=== PATIENT | female | born 1970 | race American Indian/Alaskan Native ===

== ENCOUNTER 2017-07-25 14:20 | Emergency (ER) | payer SELFPAY ==
[2017-07-25 15:11] LABS: Basophils % (Auto) 1.4 % (0.0-1.8); Eosinophils % (Auto) 9.6 % (0.0-4.3); Hematocrit 38.5 % (30.3-42.9); Mean Corpuscular HGB Conc 31 % (30-34); Mean Corpuscular Volume 79 fl (79-97); Platelet Count 361 K/mm3 (140-440); Red Blood Count 4.89 M/mm3 (3.65-5.03); Red Cell Distribution Width 15.3 % (13.2-15.2); White Blood Count 5.7 K/mm3 (4.5-11.0)
[2017-07-25 15:15] LABS: Mean Corpuscular Hemoglobin 25 pg (28-32)
[2017-07-25 15:31] LABS: Anion Gap 17 mmol/L; BUN/Creatinine Ratio 9; Blood Urea Nitrogen 7 mg/dL (7-17); Calcium 9.2 mg/dL (8.4-10.2); Carbon Dioxide 27 mmol/L (22-30); Chloride 101.5 mmol/L (98-107); Glucose 92 mg/dL (65-100); Potassium 4.3 mmol/L (3.6-5.0); Sodium 141 mmol/L (137-145)
[2017-07-25] MEDS ORDERED: SUBLIMAZE IV ONE (22:38)
[2017-07-25] MEDS ORDERED: TORADOL IV ONE (22:39)
--- NOTE | 2017-07-25 23:27 | Emergency Department Report ---
ED General Adult HPI - General Chief complaint: Chest Pain Stated complaint: CHEST PAIN Time Seen by Provider: 07/25/17 22:31 Source: patient Mode of arrival: Ambulatory Limitations: No Limitations - History of Present Illness Initial comments: She is a 47-year-old female past medical history of hypertension who presents with chest pain. Patient states chest pain is located in the middle of her chest it is an achy type of pain. It is an 8 out of 10 occurred earlier on today. Patient was resting when she had this chest pain. Patient denies having any shortness of breath she states the pain doesn't radiate and began heavily makes it worse resting makes it better. Patient also denies having any nausea or vomiting. Severity scale (0 -10): 5 - Related Data Previous Rx's Medication Instructions Recorded Last Taken Type Naproxen 250 mg PO BID #20 tablet 07/26/17 Unknown Rx Allergies Allergy/AdvReac Type Severity Reaction Status Date / Time codeine Allergy Rash Verified 07/25/17 14:26 ED Review of Systems ROS: Stated complaint: CHEST PAIN Other details as noted in HPI Constitutional: denies: chills, fever Eyes: denies: eye pain, eye discharge, vision change ENT: denies: ear pain, throat pain Respiratory: denies: cough, shortness of breath, wheezing Cardiovascular: chest pain Endocrine: no symptoms reported Gastrointestinal: denies: abdominal pain, nausea, diarrhea Genitourinary: denies: urgency, dysuria, discharge Musculoskeletal: denies: back pain, joint swelling, arthralgia Skin: denies: rash, lesions Neurological: denies: headache, weakness, paresthesias Psychiatric: denies: anxiety, depression Hematological/Lymphatic: denies: easy bleeding, easy bruising ED Past Medical Hx - Past Medical History Previous Medical History?: Yes Hx Hypertension: Yes Additional medical history: hyperlipidemia - Surgical History Past Surgical History?: Yes Additional Surgical History: x5. uterine ablation 2012. tonsillectomy 1980s. breast biospy 2015 - Social History Smoking Status: Never Smoker Substance Use Type: Alcohol - Medications Home Medications: Home Medications Medication Instructions Recorded Confirmed Last Taken Type Naproxen 250 mg PO BID #20 tablet 07/26/17 Unknown Rx ED Physical Exam - General Limitations: No Limitations General appearance: alert, in no apparent distress - Head Head exam: Present: atraumatic, normocephalic - Eye Eye exam: Present: normal appearance - ENT ENT exam: Present: mucous membranes moist - Neck Neck exam: Present: normal inspection - Respiratory Respiratory exam: Present: normal lung sounds bilaterally, chest wall tenderness. Absent: respiratory distress - Cardiovascular Cardiovascular Exam: Present: regular rate, normal rhythm. Absent: systolic murmur, diastolic murmur, rubs, gallop - GI/Abdominal GI/Abdominal exam: Present: soft, normal bowel sounds - Extremities Exam Extremities exam: Present: normal inspection - Back Exam Back exam: Present: normal inspection - Neurological Exam Neurological exam: Present: alert, oriented X3 - Psychiatric Psychiatric exam: Present: normal affect, normal mood - Skin Skin exam: Present: warm, dry, intact, normal color. Absent: rash ED Course Vital Signs 07/25/17 07/25/17 07/25/17 14:26 21:44 22:30 Temperature 97.9 F Pulse Rate 100 H 87 Respiratory 20 16 11 L Rate Blood Pressure 130/89 140/88 Blood Pressure 130/89 [Left] O2 Sat by Pulse 100 100 Oximetry 07/25/17 07/25/17 07/25/17 22:31 22:33 22:35 Temperature Pulse Rate 106 H 109 H 99 H Respiratory 11 L 12 9 L Rate Blood Pressure 140/88 140/88 140/88 Blood Pressure [Left] O2 Sat by Pulse 99 100 100 Oximetry 07/25/17 07/25/17 07/25/17 22:37 22:39 22:41 Temperature Pulse Rate 103 H 95 H 90 Respiratory 12 11 L 10 L Rate Blood Pressure 140/88 140/88 140/88 Blood Pressure [Left] O2 Sat by Pulse 100 100 100 Oximetry 07/25/17 07/25/17 07/25/17 22:43 22:45 22:47 Temperature Pulse Rate 88 86 83 Respiratory 12 8 L 9 L Rate Blood Pressure 140/88 140/88 140/88 Blood Pressure [Left] O2 Sat by Pulse 100 100 100 Oximetry 07/25/17 07/25/17 07/25/17 22:49 22:51 23:01 Temperature Pulse Rate 104 H 119 H Respiratory 26 H 24 Rate Blood Pressure 140/88 140/88 140/88 Blood Pressure [Left] O2 Sat by Pulse 100 99 99 Oximetry 07/25/17 07/25/17 07/25/17 23:02 23:03 23:05 Temperature Pulse Rate Respiratory Rate Blood Pressure 140/88 140/88 140/88 Blood Pressure [Left] O2 Sat by Pulse 100 100 100 Oximetry 07/25/17 07/25/17 07/25/17 23:07 23:09 23:11 Temperature Pulse Rate Respiratory Rate Blood Pressure 140/88 140/88 140/88 Blood Pressure [Left] O2 Sat by Pulse 100 100 100 Oximetry 07/25/17 07/25/17 07/25/17 23:13 23:15 23:17 Temperature Pulse Rate Respiratory Rate Blood Pressure 140/88 140/88 140/88 Blood Pressure [Left] O2 Sat by Pulse 100 100 100 Oximetry 07/25/17 07/25/17 07/25/17 23:19 23:21 23:23 Temperature Pulse Rate Respiratory Rate Blood Pressure 140/88 140/88 140/88 Blood Pressure [Left] O2 Sat by Pulse 100 100 98 Oximetry 07/25/17 07/25/17 07/25/17 23:25 23:27 23:29 Temperature Pulse Rate Respiratory Rate Blood Pressure 140/88 140/88 140/88 Blood Pressure [Left] O2 Sat by Pulse 100 99 100 Oximetry 07/25/17 07/25/17 07/25/17 23:30 23:31 23:33 Temperature Pulse Rate Respiratory Rate Blood Pressure 122/87 122/87 122/87 Blood Pressure [Left] O2 Sat by Pulse 100 99 100 Oximetry 07/25/17 07/25/17 07/25/17 23:35 23:37 23:39 Temperature Pulse Rate Respiratory Rate Blood Pressure 122/87 122/87 122/87 Blood Pressure [Left] O2 Sat by Pulse 100 100 100 Oximetry 07/25/17 07/25/17 07/25/17 23:41 23:43 23:45 Temperature Pulse Rate 89 86 86 Respiratory 25 H 12 14 Rate Blood Pressure 122/87 122/87 122/87 Blood Pressure [Left] O2 Sat by Pulse 100 97 100 Oximetry 07/25/17 07/25/17 07/25/17 23:47 23:49 23:51 Temperature Pulse Rate 83 86 94 H Respiratory 17 23 19 Rate Blood Pressure 122/87 122/87 122/87 Blood Pressure [Left] O2 Sat by Pulse 100 100 100 Oximetry 07/25/17 07/25/17 07/25/17 23:53 23:55 23:57 Temperature Pulse Rate 74 78 78 Respiratory 13 10 L 12 Rate Blood Pressure 122/87 122/87 122/87 Blood Pressure [Left] O2 Sat by Pulse 96 96 95 Oximetry 07/25/17 07/26/17 07/26/17 23:59 00:01 00:03 Temperature Pulse Rate 72 71 74 Respiratory 12 8 L 11 L Rate Blood Pressure 122/87 109/67 109/67 Blood Pressure [Left] O2 Sat by Pulse 99 97 96 Oximetry 07/26/17 07/26/17 07/26/17 00:05 00:07 00:09 Temperature Pulse Rate 91 H 76 75 Respiratory 14 9 L 11 L Rate Blood Pressure 109/67 109/67 109/67 Blood Pressure [Left] O2 Sat by Pulse 100 97 100 Oximetry 07/26/17 00:11 Temperature Pulse Rate 72 Respiratory 7 L Rate Blood Pressure 109/67 Blood Pressure [Left] O2 Sat by Pulse 98 Oximetry ED Medical Decision Making - Lab Data Result diagrams: 07/25/17 14:51 07/25/17 14:51 Lab Results 07/25/17 07/25/17 07/25/17 Range/Units 14:51 14:51 17:19 WBC 5.7 (4.5-11.0) K/mm3 RBC 4.89 (3.65-5.03) M/mm3 Hgb 12.0 (10.1-14.3) gm/dl Hct 38.5 (30.3-42.9) % MCV 79 (79-97) fl MCH 25 L (28-32) pg MCHC 31 (30-34) % RDW 15.3 H (13.2-15.2) % Plt Count 361 (140-440) K/mm3 Lymph % (Auto) 33.7 (13.4-35.0) % [place]alier % (Auto) 10.6 H (0.0-7.3) % Eos % (Auto) 9.6 H (0.0-4.3) % Baso % (Auto) 1.4 (0.0-1.8) % Lymph # 1.9 (1.2-5.4) K/mm3 [place]ier # 0.6 (0.0-0.8) K/mm3 Eos # 0.5 H (0.0-0.4) K/mm3 Baso # 0.1 (0.0-0.1) K/mm3 Seg Neutrophils % 44.7 (40.0-70.0) % Seg Neutrophils # 2.5 (1.8-7.7) K/mm3 Sodium 141 (137-145) mmol/L Potassium 4.3 (3.6-5.0) mmol/L Chloride 101.5 (98-107) mmol/L Carbon Dioxide 27 (22-30) mmol/L Anion Gap 17 mmol/L BUN 7 (7-17) mg/dL Creatinine 0.8 (0.7-1.2) mg/dL Estimated GFR > 60 ml/min BUN/Creatinine Ratio 9 % Glucose 92 (65-100) mg/dL Calcium 9.2 (8.4-10.2) mg/dL Troponin T < 0.010 < 0.010 (0.00-0.029) ng/mL 07/25/17 Range/Units 20:32 WBC (4.5-11.0) K/mm3 RBC (3.65-5.03) M/mm3 Hgb (10.1-14.3) gm/dl Hct (30.3-42.9) % MCV (79-97) fl MCH (28-32) pg MCHC (30-34) % RDW (13.2-15.2) % Plt Count (140-440) K/mm3 Lymph % (Auto) (13.4-35.0) % [place] % (Auto) (0.0-7.3) % Eos % (Auto) (0.0-4.3) % Baso % (Auto) (0.0-1.8) % Lymph # (1.2-5.4) K/mm3 [place]ier # (0.0-0.8) K/mm3 Eos # (0.0-0.4) K/mm3 Baso # (0.0-0.1) K/mm3 Seg Neutrophils % (40.0-70.0) % Seg Neutrophils # (1.8-7.7) K/mm3 Sodium (137-145) mmol/L Potassium (3.6-5.0) mmol/L Chloride (98-107) mmol/L Carbon Dioxide (22-30) mmol/L Anion Gap mmol/L BUN (7-17) mg/dL Creatinine (0.7-1.2) mg/dL Estimated GFR ml/min BUN/Creatinine Ratio % Glucose (65-100) mg/dL Calcium (8.4-10.2) mg/dL Troponin T < 0.010 (0.00-0.029) ng/mL - EKG Data -: EKG Interpreted by Me - EKG Data 07/26/17 00:39 EKG shows normal sinus rhythm no T-wave inversion no ST segment elevation or axis deviation - Radiology Data Radiology results: image reviewed This x-ray: Shows no acute cardiopulmonary disease - Medical Decision Making Chief medical diagnosis: Costochondritis Differential medical diagnosis: Non-STEMI, pneumothorax, pneumonia CBC, CMP, EKG, troponin, IV morphine, chest x-ray Patient's laboratory work is unremarkable chest x-ray is unremarkable. Patient has had 3 negative troponins. Patient's vital signs within normal limits she has no leg swelling no hemoptysis she PERC negative. A garza is feeling better after pain medication has been given I will send the patient home with the proximal end and I'll have patient follow up with her PCP. Discussed plan with patient and she agrees with plan. Additional verbal discharge instructions were given. Critical care attestation.: If time is entered above; I have spent that time in minutes in the direct care of this critically ill patient, excluding procedure time. ED Disposition Clinical Impression: Chest pain Qualifiers: Chest pain type: intercostal pain Qualified Code(s): R07.82 - Intercostal pain Disposition: DC-01 TO HOME OR SELFCARE Is pt being admited?: No Does the pt Need Aspirin: No Condition: Stable Instructions: Chest Pain (ED), Costochondritis (ED) Prescriptions: Naproxen 250 mg PO BID #20 tablet Referrals: ITEZL RASMUSSEN MD [Staff Physician] - 3-5 Days
[2017-07-26 01:23] VITALS: BP 117/78
--- NOTE | 2017-07-26 07:48 | XRay Report ---
ROUTINE CHEST, TWO VIEWS: HISTORY: chest pain. The trachea, heart, mediastinal contour, lung rooney and bony thorax are unremarkable. IMPRESSION: Unremarkable chest x-ray.
== END 2017-07-26 01:23 | disposition home or self-care (01) ==
LOC: ED 14:20
DX: R07.82 Intercostal pain (principal); I10 Essential (primary) hypertension; Z90.89 Acquired absence of other organs; Z88.5 Allergy status to narcotic agent
CPT/HCPCS: 36415; 71020; 80048; 84484; 85025; 93005; 93010; 96374; 96375; 99284; J1885; J3010

== ENCOUNTER 2019-03-03 14:58 | Outpatient (CLI) | payer OTHER | END 2019-03-03 14:59 | disposition home or self-care (01) | LOC: LABHHL 14:58 | PROVIDERS: ATTEND Surgery | DX: N63.13 Unspecified lump in the right breast, lower outer quadrant (principal); I10 Essential (primary) hypertension | CPT/HCPCS: 88112 ==

== ENCOUNTER 2019-05-23 08:29 | Outpatient (CLI) | payer OTHER | END 2019-05-23 08:30 | disposition home or self-care (01) | LOC: LABHHL 08:29 | PROVIDERS: ATTEND Surgery | DX: N63.24 Unspecified lump in the left breast, lower inner quadrant (principal) | CPT/HCPCS: 88305; 88341; 88342; 88368 ==

== ENCOUNTER 2019-06-10 10:14 | Outpatient (CLI) | payer OTHER ==
--- NOTE | 2019-06-11 14:13 | Magnetic Resonance Report ---
BILATERAL BREAST MR WITHOUT AND WITH GADOLINIUM INDICATION: Newly diagnosed left breast cancer. Status post left ultrasound-guided needle biopsy on 05/22/2019 of a left breast mass at 6:30 o'clock 7 cm from the nipple. Pathology: Invasive carcinoma N OS, Harrison grade 6/9, ER/GA positive, HER-2 equivocal Ki-67 50%. COMPARISONS: 05/22/2019 and 11/13/2018 mammograms TECHNIQUE: Axial 1.0 mm T1 without, axial high-resolution 2.0 mm T2 and axial 1.0 mm dynamic vibrant high-resolution postcontrast T1 fat saturation sequences on a 1.5 [place] magnet. The examination was p erformed with an 8-channel dedicated [place] breast coil. Post-processing with CAD and subtraction was performed on an [employer] workstation. 13.0 cc of MultiHance was injected without incident for the c ontrast portion of the exam. Consent was obtained prior to the administration of the contrast. FINDINGS: RIGHT BREAST: Mild background parenchymal enhancement. No mass or suspicious enhancement of the right breast. Too numerous to count benign cysts of the right breast. No suspicious right axillary or righ t internal mammary lymph nodes. LEFT BREAST: Moderate background parenchymal enhancement. The known cancer is an irregular enhancing mass at 6:00 7.8 cm from the nipple measuring 1.9 x 1.9 x 1.8 cm. It demonstrates heterogeneous enhan cement with mixed kinetics, 414% peak enhancement and 11% type III washout. Highly suspicious regiona l nonmass enhancement extends from the known cancer toward the nipple and measures approximately 6 x 6 x 7 cm. An oval suspicious mass at 8:30 o'clock 6 cm from the nipple measures 1.6 x 0.9 x 0.8 cm. I t demonstrates heterogeneous enhancement with mixed kinetics, 183% peak enhancement and 38% type III washout. Too numerous to count benign cysts of the left breast. The largest is at 9:00 and measures 2.4 cm. No suspicious left axillary or left internal mammary lymph nodes. IMPRESSION: 1. A 1.9 cm known left breast cancer at 6:00 7.8 cm from the nipple and highly suspicious regional no n-mass enhancement of the inferior left breast extending from the known cancer toward the nipple for at least 6-7 cm. 2. A second suspicious 1.6 cm left breast mass at 8:30 o'clock 6 cm from the nipple. 3. Negative right breast. 4. Too numerous to count bilateral benign breast cysts. FINAL ASSESSMENT: BI-RADS Category: 6 Known Cancer Signer Name: Luis Miguel Ramey MD Signed: 06/11/2019 2:09 PM Workstation Name: [id number]
--- NOTE | 2019-06-11 15:58 | Ultrasound Report ---
COMPLETE BILATERAL BREAST ULTRASOUND HISTORY: Newly diagnosed left breast cancer and history of bilateral cysts. COMPARISON: 02/03/2019 and 05/22/2019 mammograms FINDINGS: Complete sonographic evaluation of the right breast including imaging of the four quadrants and subar eolar areas reveals no solid mass or shadowing.Too numerous to count cysts. The largest is at 7:00 4 cm from the nipple and it measures 1.5 x 0.8 x 1.4 cm. A complex cyst at 9:00 6 cm from the nipple me asures 1.1 x 0.8 x 1.0 cm. It has retracted clot in the wall. Complete sonographic evaluation of the left breast including imaging of the four quadrants and subare olar areas reveals too numerous to count cysts. The largest is at 10:00 3 cm from the nipple measurin g 2.3 x 1.4 x 2.0 cm. An irregular solid hypoechoic mass at 6:00 7 cm from the nipple corresponds to the known cancer. It measures approximately 1.7 x 2.4 x 1.2 cm. A suspicious oval solid mass at 8:00 5 cm from the nipple measures 1.0 x 0.8 0.7 cm. IMPRESSION 1. Known left breast cancer at 6:00 7 cm from the nipple. 2. A second suspicious solid mass of the left breast at 8:00 5 cm from the nipple. This mass correlat es with a mass identified by MRI. 3. No solid mass of the right breast. 4. Too numerous to count bilateral benign breast cysts. If the clinical examination remains stable, the patient should continue an annual screening mammograp hic evaluation schedule. BIRADS 6: Known biopsy proven malignancy. Signer Name: Luis Miguel Ramey MD Signed: 06/11/2019 3:53 PM Workstation Name: [id number]
== END 2019-06-10 10:15 | disposition home or self-care (01) ==
LOC: SPVIMAG 10:14
PROVIDERS: ATTEND Surgery
DX: C50.312 Malignant neoplasm of lower-inner quadrant of left female breast (principal); I10 Essential (primary) hypertension
CPT/HCPCS: 76641; A9577; C8908; 77049

== ENCOUNTER 2019-07-30 05:49 | Observation (INO) | payer MEDICARE, OTHER ==
[~2019-07-30 05:49] MED LIST: BACITRACIN 50,000 UNIT VIAL IR ONE; GENTAMICIN 40 MG/ML VIAL 2 ML IV ONE; METHYLENE BLUE 50 MG/10 ML AMP IRRIGATION ONE; SODIUM CHLORIDE 0.9% 50 ML IVPB IV ONE; SODIUM CHLORIDE 0.9% IRR 1,500 ML BOTTLE IR ONE; WATER FOR IRRIG STERILE 1,500 ML BOTTLE IR ONE; ceFAZolin 1 GM VIAL IV ONE; ceFAZolin/Water 2 GM/20 ML 2 GM/20 ML SYRINGE IV NR
[2019-07-30] MEDS: LACTATED RINGERS 1,000 ML IV SCH ×2 (07:00→18:35)
[2019-07-30] MEDS ORDERED: cloNIDine/PF 1,000 MCG/10 ML VIAL EP ONE (07:22)
[2019-07-30] MEDS ORDERED: dexAMETHasone 4 MG/ML VIAL ONE (07:22)
[2019-07-30] MEDS ORDERED: LIDOCAINE (1%) 10 MG/1 ML VIAL 20 ML MDV ONE (07:22)
[2019-07-30] MEDS ORDERED: BUPIVACAINE-EPINEPHRINE/PF 0.25%-1:200,000 (30 ML) VIAL INFILTRATI ONE (07:22)
[2019-07-30] MEDS ORDERED: fentaNYL 100 MCG/2 ML INJ IV NR (07:23)
[2019-07-30] MEDS ORDERED: FAMOTIDINE 20 MG/2 ML INJ IV NR (07:24)
--- NOTE | 2019-07-30 07:26 | Anesthesia Day of Surgery ---
Anesthesia Day of Surgery - Day of Surgery Patient Examined: Yes Patient H&P Reviewed: Yes Patient is NPO: Yes Cardiac Clearance: Yes
--- NOTE | 2019-07-30 07:26 | Anesthesia Consultation ---
Anesthesia Consult and Med Hx Date of service: 07/30/19 - Airway Anesthetic Teeth Evaluation: Good, Chipped (bottom right premolar) ROM Head & Neck: Adequate Mental/Hyoid Distance: Adequate Mallampati Class: Class II Intubation Access Assessment: Probably Good - Pulmonary Exam CTA: Yes - Cardiac Exam Cardiac Exam: RRR - Pre-Operative Health Status ASA Pre-Surgery Classification: ASA3 Proposed Anesthetic Plan: General Nerve Block: PEC - Pulmonary Hx Smoking: No Hx Respiratory Symptoms: No - Cardiovascular System Hx Hypertension: Yes Hx Heart Attack/AMI: No - Central Nervous System CVA: No Hx Psychiatric Problems: Yes (depression) - Gastrointestinal Hx Gastroesophageal Reflux Disease: Yes (controlled with omeprazole) - Endocrine Hx Renal Disease: No Hx Liver Disease: No Hx Insulin Dependent Diabetes: No Hx Non-Insulin Dependent Diabetes: No Hx Thyroid Disease: No - Hematic Hx Anemia: Yes - Other Systems Hx Cancer: Yes (breast Ca) Hx Obesity: No - Additional Comments Anesthesia Medical History Comments: No hx anesthetic complications. Cardiology clearance on chart.
[2019-07-30] MEDS ORDERED: METHYLENE BLUE 50 MG/10 ML AMP ONE (07:31)
[2019-07-30] MEDS ORDERED: ceFAZolin 1 GM VIAL ONE ×2 (07:31→12:06)
[2019-07-30] MEDS ORDERED: GENTAMICIN 40 MG/ML VIAL 2 ML ONE (07:31)
[2019-07-30] MEDS ORDERED: BACITRACIN 50,000 UNIT VIAL ONE (07:32)
[2019-07-30] MEDS ORDERED: FAMOTIDINE 20 MG/2 ML INJ IV ONE (07:33)
[2019-07-30] MEDS ORDERED: CELECOXIB 200 MG CAP ONE (07:33)
[2019-07-30] MEDS ORDERED: SODIUM CHLORIDE 0.9% 50 ML ONE (07:33)
[2019-07-30] MEDS ORDERED: PROPOFOL 200 MG/20 ML VIAL IV ONE (07:36)
[2019-07-30] MEDS ORDERED: ROCURONIUM 50 MG/5 ML INJ IV ONE (07:36)
[2019-07-30] MEDS ORDERED: dexAMETHasone 20 MG/5 ML VIAL ONE (07:36)
[2019-07-30] MEDS ORDERED: KETAMINE/STERILE WATER 50 MG/ML SYRINGE ONE (07:36)
[2019-07-30] MEDS ORDERED: LIDOCAINE MPF (2%) 20 MG/1 ML VIAL 5 ML ONE (07:36)
[2019-07-30] MEDS ORDERED: ONDANSETRON 4 MG/2 ML INJ ONE (07:36)
[2019-07-30] MEDS ORDERED: fentaNYL 100 MCG/2 ML INJ ONE ×2 (07:36→13:50)
[2019-07-30] MEDS ORDERED: GABAPENTIN 300 MG CAP PO NR (08:00)
[2019-07-30] MEDS ORDERED: CELECOXIB 200 MG CAP PO NR (08:00)
[2019-07-30] MEDS ORDERED: MIDAZOLAM 2 MG/2 ML INJ IV NR (08:00)
[2019-07-30] MEDS ORDERED: WATER FOR IRRIG STERILE 1,500 ML BOTTLE IR ONE (10:26)
[2019-07-30] MEDS ORDERED: LACTATED RINGERS 1,000 ML ONE (12:01)
[2019-07-30] MEDS ORDERED: BACITRACIN 50,000 UNIT VIAL IR ONE (12:37)
[2019-07-30] MEDS ORDERED: SODIUM CHLORIDE 0.9% IRR 1,500 ML BOTTLE IR ONE (12:37)
[2019-07-30] MEDS ORDERED: SODIUM CHLORIDE 0.9% 50 ML IVPB IV ONE (12:37)
[2019-07-30] MEDS ORDERED: GENTAMICIN 40 MG/ML VIAL 2 ML IV ONE (12:37)
[2019-07-30] MEDS ORDERED: ceFAZolin 1 GM VIAL IV ONE (12:37)
[2019-07-30] MEDS ORDERED: METHYLENE BLUE 50 MG/10 ML AMP IRRIGATION ONE (12:43)
[2019-07-30] MEDS ORDERED: ACETAMINOPHEN 325 MG TAB PO PRN (13:19)
[2019-07-30] MEDS ORDERED: METOCLOPRAMIDE 10 MG TAB PO PRN (13:19)
[2019-07-30] MEDS ORDERED: HYDROmorphone 2 MG TAB PO PRN (13:19)
[2019-07-30] MEDS ORDERED: oxyCODONE /ACETAMINOPHEN 5-325MG TAB PO PRN (13:19)
[2019-07-30] MEDS ORDERED: ONDANSETRON 4 MG/2 ML INJ IV PRN (13:19)
[2019-07-30] MEDS ORDERED: diphenhydrAMINE 25 MG CAP PO PRN (13:19)
--- NOTE | 2019-07-30 13:22 | Operative Report ---
Operative Report Operative Report: Operative Report: Date of Service: July 30, 2019 Preoperative diagnosis: Left breast cancer of the lower inner quadrant Postoperative diagnosis: Same Procedure: Left total mastectomy with sentinel lymph node biopsy followed by ALND and right total mastectomy Surgeon: Jackelin Haney M.D. Ve Teacher: Megan Herbert M.D. Anesthesia: Gen. Findings: Left breast clip present within left total mastectomy. 3 sentinel lymph nodes identified and one sentinel lymph node positive for malignancy on frozen section of pathology and proceeded with left axillary lymph node dissection Complications: None Drains: Placed by plastic surgery Estimated blood loss: 50-100 cc Disposition: Plastic surgery placed bilateral tissue expanders Indications for operative procedure: This is a 49-year-old lady with newly diagnosed stage II left breast cancer of the lower inner quadrant, IDCA grade 2 [id number] ER/ID positive. Patient wanted to proceed with a bilateral mastectomy. Agreed with a left total mastectomy given probable multicentric left breast cancer. Patient understood undergoing a right total mastectomy does not decrease her chance for contralateral breast cancer to 0%. She wished to proceed with immediate placement of bilateral tissue adobe architect in conjunction with plastic surgery. She understood the role of possible adjuvant chemoradiation therapy pending final pathology. She wished to proceed with the above procedure. Procedure in detail: The patient was taken to the operating room and was placed supine. Gen. anesthesia was administered. The left nipple was injected with radioisotope. Bilateral chest and axillas were prepped and draped in the normal sterile operative fashion. Timeout was performed. Typical mastectomy incision markings were made. Known left breast cancer close intramammary fold around the 7:30 8 o'clock position. Skin was noted to be close to the tumor with MRI findings of 12-20 mm margin, decided not to resect skin anterior to cancer given skin would not appropriately approximate and close. If pathology is positive for skin margins patient will need to return to the operating room for a lattismus dorsi flap given small breast size in relationship to tumor size. Attention was taken towards the right breast. A skin incision was made with a 10 blade knife and dissection taken down to the subcutaneous tissues. First began raising of the superior flap to the level of the clavicle superiorly and posteriorly to the pectoralis muscle. Followed by raising of the medial flap to the level of the sternum and posteriorly to the pectoralis muscle. Followed by raising of the lateral flap to the level of the latissimus dorsi muscle and storm en down posteriorly. Followed by raising of the inferior flap to the level of the inframammary fold taken posterior to the pectoralis muscle. The mastectomy/breast was removed from the pectoralis muscle without incident. The specimen was appropriately marked and sent to pathology. Attention was taken towards the left breast. Ultrasound was used to identify the area of concern, known breast cancer mass palpable at the 7/8:00 position close to the IMF. A gamma probe was inserted into the axilla to identify the sentinel lymph node location with uptake noted. A skin incision was made with a 10 blade knife and dissection taken down to the subcutaneous tissues. First began raising of the superior flap to the level of the clavicle superiorly and posteriorly to the pectoralis muscle. Followed by raising of the medial flap to the level of the sternum and posteriorly to the pectoralis muscle. Followed by raising of the lateral flap to the level of the latissimus dorsi muscle and taken down pos teriorly. The gamma probe was inserted into the axilla, the axillary fascia was opened and 3 sentinel lymph nodes were identified with the gamma probe that was dissected free and sent to pathology. All remaining counts were less than 10% of the highest SLN. Lymph node was sent to pathology with findings positive for malignancy of first sentinel lymph node tested on frozen section, second SLN was negative and third remaining node was processed permanently given first node positive. Then proceeded with raising of the inferior flap to the level of the inframammary fold taken posterior to the pectoralis muscle. The mastectomy/breast was removed from the pectoralis muscle without incident. The specimen was appropriately marked and sent to radiology with findings of breast clip present and sent to pathology. Attention was then taken towards the left axilla. First began opening of the axillary fascia further. The lattismus dorsi muscle was identified and followed superiorly. Then proceeded with identification of the axillary vein followed by identification of the thoracodorsal bundle and long thoracic nerve. Axillary lymph nodes were then removed from the above boundaries with the aid of the bovie cautery in a sweeping-like motion and then sent to pathology. Axillary lymph nodes from level I and II were removed. Both nerves were identified and unharmed. Hemostasis was noted. The chest wall was irrigated and suctioned. Hemostasis was obtained. Plastic surgery then proceeded with placement of bilateral tissue expanders.
--- NOTE | 2019-07-30 13:41 | Post Operative Note ---
Pre-op diagnosis: left breast cancer Post-op diagnosis: same Findings: bilateral mastectomies Procedure: bilateral breast recon withe expanders and biologic mesh Anesthesia: GETA Surgeon: LUAN CBAELLO Estimated blood loss: none Pathology: none Condition: stable Disposition: PACU
[2019-07-30] MEDS ORDERED: traMADol 50 MG TAB PO PRN (13:50)
[2019-07-30] MEDS ORDERED: LACTATED RINGERS 1,000 ML IV SCH (14:00)
--- NOTE | 2019-07-30 14:02 | Post Operative Note ---
Pre-op diagnosis: Left Breast Cancer Post-op diagnosis: same Procedure: Right Breast Mastectomy, Left Breast Mastectomy, Left [place] Lymph Node Biopsy, with completion Axillary Lymph Node Dissection Anesthesia: MADHURI Surgeon: JEAN PIERRE THURSTON Diesel Truck Crane Operator: LUCILLE YOUNG Estimated blood loss: minimal Pathology: list Specimen disposition: to lab Condition: stable Disposition: other (Plastic Surgeon Dr. Feng took over and placed Bilateral Expanders)
[2019-07-30] MEDS: HYDROmorphone 1 MG/1 ML INJ IV PRN ×3 (14:11→14:56)
--- NOTE | 2019-07-30 14:12 | Operative Report ---
PREOPERATIVE DIAGNOSIS: Left breast cancer. POSTOPERATIVE DIAGNOSIS: Left breast cancer. PROCEDURES: 1. Bilateral breast reconstruction using tissue expanders. 2. Bilateral breast reconstruction using biological mesh. 3. Application of JESSY negative pressure wound VAC device to bilateral breasts for postoperative wound healing. SURGEON: Brant Feng MD QUALITY CLOTH TESTER: None. ANESTHESIA: General. OPERATIVE INDICATIONS: This is a 49-year-old female with a history of left-sided breast cancer, was referred to me by Dr. Jackelin Haney for breast reconstructive options. Due to the paucity of autologous tissue, reconstructive options were limited to implant based reconstruction. We decided an contract loader to implant-based reconstruction. Risks and benefits of surgery were discussed with the patient, she agreed. OPERATIVE DETAILS: With informed consent obtained, the patient was brought to the operating room and placed supine on the operating table. Dr. Haney began her portion of the operation, which will be dictated separately. I came into the operation after she had completed the right-sided mastectomy and was working on the left-sided mastectomy. I began on preparing the expanders on the back table. We used a [employer] ultra high profile 450 mL tissue expanders. We opened up 2 of those and the serial number on the right side was [id number], serial number for the left side was [id number] and we opened up 2 pieces of FlexHD pliable perforated large 13 x 22 cm biological mesh. On the right side, we used a piece with serial #[id number]; on the left side, serial #[id number]. We soaked the mesh in triple antibiotic irrigation. We removed all the air from the tissue contract loader filled with 50 mL of saline. We then went ahead and performed a wrap of the tissue contract loader using PDS sutures to completely wrap the anterior portion of the tissue contract loader. We then soaked in triple antibiotic and Betadine and Dr. Haney was done with the mastectomies. I assessed the defects as bilateral mastectomy defects. There was enough skin to close, but is going to be tight, so we only left 50 mL in this tissue contract loader. We started on the right side and secured the tissue contract loader and meshed to the chest wall using the suture tabs and 2-0 PDS sutures. We then placed a 19 and 15-Mosotho Giacomo drain and then went ahead and after irrigating and achieving hemostasis, began with closure. We closed with 2-0 Vicryl on the deeper layer, then a 3-0 Monocryl deep dermal and then a 3-0 Monocryl V-Loc barbed suture in a subcuticular fashion. On the left side, the same procedure was performed and we placed the 15-Mosotho round Giacomo drain down into the axillary defect from the axillary lymph node dissection that was performed. Otherwise, the contract loader was sewn in place. Hemostasis was achieved. We placed our drains and closed in the same fashion. We then went ahead and placed a JESSY negative pressure wound VAC device over each incision to help with postoperative wound healing. We placed the patient in a support binder, placed Biopatches over the drains and Tegaderm. She tolerated the procedure well, was awakened from general anesthesia and transferred to the PACU in stable condition. ESTIMATED BLOOD LOSS: Minimal. COMPLICATIONS: None. SPECIMENS: None. JOB# [id number] RODGER/VEL
[2019-07-30] MEDS ORDERED: HYDROmorphone 1 MG/1 ML INJ ONE (14:57)
--- NOTE | 2019-07-30 15:23 | Post Anesthesia Evaluation ---
- Post Anesthesia Evaluation Patient Participated: Yes Airway Patent: Yes Stable Respiratory Function: Yes Nausea/Vomiting: No Temp > 96.8F: Yes Pain Manageable: Yes Adequeate Hydration: Yes Anesthesia Complications: No
[2019-07-30] MEDS ORDERED: PETROLATUM,WHITE 30 GM OINT TP PRN (16:40)
[2019-07-30] MEDS: MORPHINE 2 MG/1 ML INJ IV PRN (18:38)
--- NOTE | 2019-07-30 19:22 | Short Stay Summary ---
Short Stay Documentation Date of service: 07/30/19 - History H&P: obtained from office - Allergies and Medications Current Medications: Allergies codeine Allergy (Verified 07/25/17 14:26) Rash amlodipine Adverse Reaction (Verified 07/28/19 16:18) Palpitation lisinopril Adverse Reaction (Verified 07/28/19 16:18) Facial Twitching NSAIDS (Non-Steroidal Anti-Inflamma Adverse Reaction (Verified 07/28/19 16:18) Contraindicated Severe GERD prednisone Adverse Reaction (Verified 07/28/19 16:18) Contraindicated Severe GERD Home Medications Medication Instructions Recorded Confirmed Last Taken Type Cholecalciferol (Vitamin D3) 2,000 unit PO QDAY 07/28/19 07/28/19 07/29/19 12:00 History [Vitamin D3 2,000 UNIT CAP] Cyanocobalamin (Vitamin B-12) 1,000 mcg PO 07/28/19 07/29/19 12:00 History [Vitamin B-12] Docusate Sodium [Colace] 100 mg PO BID 07/28/19 07/28/19 07/29/19 12:00 History Ferrous Sulfate [Feosol] 325 mg PO BID 07/28/19 07/28/19 07/29/19 12:00 History Loratadine [Claritin] 10 mg PO DAILY PRN 07/28/19 07/28/19 07/29/19 12:00 History Multivitamin [Children's Chewable 1 each PO DAILY 07/28/19 07/28/19 07/29/19 12:00 History Vitamin] Pantoprazole [Protonix] 40 mg PO BID 07/28/19 07/28/19 07/30/19 05:00 History RX: Telmisartan 40 mg PO DAILY 07/28/19 07/28/19 07/29/19 12:00 History Sulfamethoxazole/Trimethoprim 1 each PO BID 07/28/19 07/28/19 07/29/19 12:00 History [Bactrim DS TAB] Active Medications Acetaminophen (Tylenol) 650 mg PO Q6H PRN PRN Reason: Pain MILD(1-3)/Fever >100.5/MIRANDA Diphenhydramine HCl (Benadryl) 25 mg PO Q8H PRN PRN Reason: Itching Docusate Sodium (Colace) 100 mg PO BID NEGRO Hydromorphone HCl (Dilaudid) 0.5 mg IV Q10MIN PRN PRN Reason: Pain , Severe (7-10) Stop: 07/30/19 22:00 Last Admin: 07/30/19 14:56 Dose: 0.5 mg Documented by: Hydrophilic Ointment (Vaseline) 1 applic TP PRN PRN PRN Reason: Skin Irritation Last Admin: 07/30/19 16:53 Dose: 1 applic Documented by: Cefazolin Sodium (Ancef/Sterile Water 2 Gm/20 Ml) 2 gm in 20 mls @ 80 mls/hr IV PREOP NR; Protocol Stop: 07/30/19 23:59 Lactated Ringer's (Lactated Ringers) 1,000 mls @ 75 mls/hr IV DIRECT NEGRO Last Admin: 07/30/19 18:35 Dose: 75 mls/hr Documented by: Lactated Ringer's (Lactated Ringers) 1,000 mls @ 125 mls/hr IV DIRECT NEGRO Cefazolin Sodium (Ancef/Ns 1 Gm/50 Ml) 1 gm in 50 mls @ 100 mls/hr IV Q8HR NEGRO; Protocol Metoclopramide HCl (Reglan) 10 mg PO Q6H PRN PRN Reason: Nausea And Vomiting Midazolam HCl (Versed) 2 mg IV PREOP NR Stop: 07/30/19 23:59 Last Admin: 07/30/19 07:47 Dose: 2 mg Documented by: Morphine Sulfate (Morphine) 2 mg IV Q4H PRN PRN Reason: Pain, Moderate (4-6) Last Admin: 07/30/19 18:38 Dose: 2 mg Documented by: Ondansetron HCl (Zofran) 4 mg IV Q8H PRN PRN Reason: N/V unrelieved by Reglan Last Admin: 07/30/19 16:53 Dose: 4 mg Documented by: Sodium Chloride (Sodium Chloride Flush Syringe 10 Ml) 10 ml IV PRN PRN PRN Reason: LINE FLUSH Tramadol HCl (Ultram) 50 mg PO Q6H PRN PRN Reason: Pain, Moderate (4-6) - Brief post op/procedure progress note Date of procedure: 07/30/19 Pre-op diagnosis: Right breast cancer of upper outer quadrant Post-op diagnosis: same Procedure: Right MRM Anesthesia: GETA Findings: Right breast clip and positive SLN and proceeded with ALND Surgeon: JEAN PIERRE THURSTON Roadway Technician: LUCILLE YOUNG Estimated blood loss: other (125 ml) Pathology: list Specimen disposition: to lab Condition: stable - Disposition Condition at discharge: Good Disposition: DC/TX- [facility]RT-TRM GEN HOSP IP Short Stay Discharge Plan Activity: other (no heavy lifting) Diet: regular Wound: keep clean and dry Follow up with: PHYLICIA KAYE DO [Primary Care Provider] - 7 Days JEAN PIERRE THUSRTON MD [Staff Physician] - 7 Days
[2019-07-30] MEDS: ceFAZolin/NS 1 GM/50 ML 1 GM/50 ML BAG IV SCH (20:19)
[2019-07-30] MEDS ORDERED: DOCUSATE SODIUM 100 MG CAP PO SCH (22:00)
[2019-07-30] MEDS ORDERED: LOSARTAN 50 MG TAB PO SCH (22:00)
[2019-07-31] MEDS: MORPHINE 2 MG/1 ML INJ IV PRN (00:38)
[2019-07-31] MEDS: ceFAZolin/NS 1 GM/50 ML 1 GM/50 ML BAG IV SCH (03:24)
--- NOTE | 2019-07-31 08:23 | Progress Note ---
Assessment and Plan This is a 49 year olday POD# right tot mastectomy; left MRM and casper TE placement. 1. No acute events overnight. 2. Pain in good control. 3. Casper incisions healing well. 4. GARTH drain education. 5. OOB to hallway. Subjective Date of service: 07/31/19 Principal diagnosis: Stage II left breast cancer Interval history: POD#1 right total mastectomy, left MRM and casper tissue director educational radio placement Objective - Constitutional Vitals: Vital Signs - 12hr 07/30/19 07/30/19 07/31/19 20:41 22:10 00:27 Temperature 97.8 F 98.1 F Pulse Rate 67 67 71 Respiratory 20 20 Rate Blood Pressure 149/94 149/94 125/80 O2 Sat by Pulse 100 100 Oximetry 07/31/19 07/31/19 07/31/19 00:38 04:42 05:44 Temperature 98.2 F Pulse Rate 77 Respiratory 18 20 18 Rate Blood Pressure 113/78 O2 Sat by Pulse 100 Oximetry General appearance: Present: no acute distress - EENT Eyes: PERRL, EOM intact ENT: hearing intact, clear oral mucosa, dentition normal Ears: bilateral: normal - Neck Neck: supple, normal ROM - Respiratory Respiratory effort: normal - Breasts Breasts: other (casper inc c/d/i; no hematoma, skin well perfused; GARTH drains to bulb suction) - Cardiovascular Rhythm: regular Extremities: no ischemia, pulses intact, pulses symmetrical, No edema, normal temperature, normal color, Full ROM - Gastrointestinal General gastrointestinal: Present: soft, non-tender, non-distended Rectal Exam: deferred - Genitourinary Female genitourinary: deferred - Integumentary Integumentary: clear, warm, dry - Musculoskeletal Musculoskeletal: strength equal bilaterally - Neurologic Neurologic: CNII-XII intact, moves all extremities - Psychiatric Psychiatric: appropriate mood/affect, intact judgment & insight, memory intact, cooperative Medications & Allergies - Medications Allergies/Adverse Reactions: Allergies codeine Allergy (Verified 07/25/17 14:26) Rash amlodipine Adverse Reaction (Verified 07/28/19 16:18) Palpitation lisinopril Adverse Reaction (Verified 07/28/19 16:18) Facial Twitching NSAIDS (Non-Steroidal Anti-Inflamma Adverse Reaction (Verified 07/28/19 16:18) Contraindicated Severe GERD prednisone Adverse Reaction (Verified 07/28/19 16:18) Contraindicated Severe GERD Home Medications: Home Medications Medication Instructions Recorded Confirmed Last Taken Type Cholecalciferol (Vitamin D3) 2,000 unit PO QDAY 07/28/19 07/28/19 07/29/19 12:00 History [Vitamin D3 2,000 UNIT CAP] Cyanocobalamin (Vitamin B-12) 1,000 mcg PO 07/28/19 07/29/19 12:00 History [Vitamin B-12] Docusate Sodium [Colace] 100 mg PO BID 07/28/19 07/28/19 07/29/19 12:00 History Ferrous Sulfate [Feosol] 325 mg PO BID 07/28/19 07/28/19 07/29/19 12:00 History Loratadine [Claritin] 10 mg PO DAILY PRN 07/28/19 07/28/19 07/29/19 12:00 History Multivitamin [Children's Chewable 1 each PO DAILY 07/28/19 07/28/19 07/29/19 12:00 History Vitamin] Pantoprazole [Protonix] 40 mg PO BID 07/28/19 07/28/19 07/30/19 05:00 History Sulfamethoxazole/Trimethoprim 1 each PO BID 07/28/19 07/28/19 07/29/19 12:00 History [Bactrim DS TAB] Telmisartan 40 mg PO DAILY 07/28/19 07/28/19 07/29/19 12:00 History Active Medications: Generic Name Dose Route Start Last Admin Trade Name Freq PRN Reason Stop Dose Admin Acetaminophen 650 mg 07/30/19 13:19 Tylenol PO Q6H PRN Pain MILD(1-3)/Fever >100.5/MIRANDA Diphenhydramine HCl 25 mg 07/30/19 13:19 Benadryl PO Q8H PRN Itching Docusate Sodium 100 mg 07/30/19 22:00 07/30/19 22:10 Colace PO Not Given BID NEGRO Hydrophilic Ointment 1 applic 07/30/19 16:40 07/30/19 16:53 Vaseline TP 1 applic PRN PRN Administration Skin Irritation Lactated Ringer's 1,000 mls @ 125 mls/hr 07/30/19 14:00 Lactated Ringers IV DIRECT NEGRO Cefazolin Sodium 1 gm in 50 mls @ 100 mls/hr 07/30/19 15:00 07/31/19 03:24 Ancef/Ns 1 Gm/50 Ml IV 100 mls/hr Q8HR NEGRO Administration Protocol Losartan Potassium 50 mg 07/30/19 22:00 07/30/19 22:10 Cozaar PO 50 mg QDAY NEGRO Administration Metoclopramide HCl 10 mg 07/30/19 13:19 Reglan PO Q6H PRN Nausea And Vomiting Morphine Sulfate 2 mg 07/30/19 14:10 07/31/19 00:38 Morphine IV 2 mg Q4H PRN Administration Pain, Moderate (4-6) Ondansetron HCl 4 mg 07/30/19 13:19 07/30/19 16:53 Zofran IV 4 mg Q8H PRN Administration N/V unrelieved by Reglan Sodium Chloride 10 ml 07/30/19 13:19 Sodium Chloride Flush Syringe 10 Ml IV PRN PRN LINE FLUSH Tramadol HCl 50 mg 07/30/19 13:50 07/31/19 05:44 Ultram PO 50 mg Q6H PRN Administration Pain, Moderate (4-6)
[2019-07-31 11:54] VITALS: BP 118/77
--- NOTE | 2019-08-04 09:27 | Mammography Report ---
SPECIMEN RADIOGRAPH LEFT BREAST INDICATION: POST EXC BX. Left breast cancer. COMPARISON: 05/22/2019 mammogram FINDINGS: 2 biopsy clips are identified within the whole breast specimen. One clip is from the upper quadrant a nd the breast and the second clip is in the inferior portion of the breast near the inframammary fold . IMPRESSION: Excision of the known cancer. Signer Name: Luis Miguel Ramey MD Signed: 08/04/2019 9:22 AM Workstation Name: [id number]
== END 2019-07-31 11:17 | disposition short-term general hospital (02) ==
LOC: OR 05:49 → OB 14:11
PROVIDERS: ADMIT Surgery; ATTEND Surgery
DX: C50.312 Malignant neoplasm of lower-inner quadrant of left female breast (principal); I10 Essential (primary) hypertension; F41.9 Anxiety disorder, unspecified; K21.9 Gastro-esophageal reflux disease without esophagitis; Z98.891 History of uterine scar from previous surgery; Z98.51 Tubal ligation status
CPT/HCPCS: 19303; 19357; 38525; 38792; 76098; 78800; 81025; 88307; 88331; 96365; 96366; 96375; 96376; A9541; C1789; G0378; J0690; J0735; J1100; J1170; J1580; J2250; J2270; J2405; J2704; J3010; J7120; Q4128; Q9968; 88309; 88333; 88342; A6250

== ENCOUNTER 2019-09-03 12:33 | Day surgery (SDC) | payer OTHER, MEDICARE ==
[~2019-09-03 12:33] MED LIST changes: -BACITRACIN 50,000 UNIT VIAL IR ONE; -GENTAMICIN 40 MG/ML VIAL 2 ML IV ONE; -METHYLENE BLUE 50 MG/10 ML AMP IRRIGATION ONE; +METHYLENE BLUE 50 MG/10 ML AMP ONE; -SODIUM CHLORIDE 0.9% 50 ML IVPB IV ONE; -SODIUM CHLORIDE 0.9% IRR 1,500 ML BOTTLE IR ONE; +SODIUM CHLORIDE P/F VIAL 10 ML 0 ML ONE; -WATER FOR IRRIG STERILE 1,500 ML BOTTLE IR ONE; -ceFAZolin 1 GM VIAL IV ONE
[2019-09-03] MEDS ORDERED: BACITRACIN 50,000 UNIT VIAL ONE (14:22)
[2019-09-03] MEDS ORDERED: GENTAMICIN 40 MG/ML VIAL 2 ML ONE (14:22)
[2019-09-03] MEDS ORDERED: ceFAZolin 1 GM VIAL ONE (14:22)
[2019-09-03] MEDS ORDERED: SODIUM CHLORIDE 0.9% 1000 ML 1,000 ML ONE (14:23)
--- NOTE | 2019-09-03 15:25 | Anesthesia Day of Surgery ---
Anesthesia Day of Surgery - Day of Surgery Patient Examined: Yes Patient H&P Reviewed: Yes Patient is NPO: Yes
--- NOTE | 2019-09-03 15:25 | Anesthesia Consultation ---
Anesthesia Consult and Med Hx Date of service: 09/03/19 - Airway Anesthetic Teeth Evaluation: Good, Chipped (bottom right premolar) ROM Head & Neck: Adequate Mental/Hyoid Distance: Adequate Mallampati Class: Class II Intubation Access Assessment: Probably Good (previous easy intubation w/ MAC 3, 7.0 oETT) - Pulmonary Exam CTA: Yes - Cardiac Exam Cardiac Exam: RRR - Pre-Operative Health Status ASA Pre-Surgery Classification: ASA3 Proposed Anesthetic Plan: General - Pulmonary Hx Respiratory Symptoms: No - Cardiovascular System Hx Hypertension: Yes Hx Heart Attack/AMI: No - Central Nervous System CVA: No Hx Psychiatric Problems: Yes (depression) - Gastrointestinal Hx Gastroesophageal Reflux Disease: Yes (controlled with omeprazole) - Endocrine Hx Renal Disease: No Hx Liver Disease: No Hx Insulin Dependent Diabetes: No Hx Non-Insulin Dependent Diabetes: No Hx Thyroid Disease: No - Hematic Hx Anemia: Yes - Other Systems Hx Alcohol Use: Yes Hx Substance Use: No Hx Cancer: Yes (breast ca) Hx Obesity: No - Additional Comments Anesthesia Medical History Comments: No hx anesthetic complications.
[2019-09-03 15:39] LABS: Mean Corpuscular HGB Conc 32 % (30-34); Mean Corpuscular Volume 77 fl (79-97); Platelet Count 321 K/mm3 (140-440); Red Blood Count 4.01 M/mm3 (3.65-5.03); Red Cell Distribution Width 15.3 % (13.2-15.2)
[2019-09-03 15:46] LABS: Basophils # (Auto) 0.1 K/mm3 (0.0-0.1); Eosinophils # (Auto) 0.3 K/mm3 (0.0-0.4); Eosinophils % (Auto) 7.8 % (0.0-4.3); Monocytes # (Auto) 0.4 K/mm3 (0.0-0.8); Monocytes % (Auto) 11.5 % (0.0-7.3)
[2019-09-03] MEDS ORDERED: LACTATED RINGERS 1,000 ML IV SCH (16:00)
[2019-09-03] MEDS ORDERED: SCOPOLAMINE TRANSDERMAL PATCH 72 HR TD NR (16:00)
[2019-09-03] MEDS ORDERED: MIDAZOLAM 2 MG/2 ML INJ IV NR (16:00)
[2019-09-03] MEDS ORDERED: GABAPENTIN 300 MG CAP PO NR (16:00)
[2019-09-03] MEDS ORDERED: fentaNYL 100 MCG/2 ML INJ ONE (16:13)
[2019-09-03] MEDS ORDERED: LIDOCAINE MPF (2%) 20 MG/1 ML VIAL 5 ML ONE (16:13)
[2019-09-03] MEDS ORDERED: propofoL 200 MG/20 ML VIAL IV ONE (16:13)
[2019-09-03 17:02] LABS: Hypochromasia 1+; Total Cells Counted 100
[2019-09-03] MEDS ORDERED: WATER FOR IRRIG STERILE 1,000 ML BOTTLE IR ONE (17:08)
[2019-09-03] MEDS ORDERED: BACITRACIN 50,000 UNIT VIAL IR ONE (17:15)
[2019-09-03] MEDS ORDERED: GENTAMICIN 40 MG/ML VIAL 2 ML IV ONE (17:15)
[2019-09-03] MEDS ORDERED: SODIUM CHLORIDE 0.9% IRR 1,000 ML BOTTLE IR ONE (17:16)
[2019-09-03] MEDS ORDERED: ceFAZolin 1 GM VIAL IV ONE (17:16)
--- NOTE | 2019-09-03 17:45 | Operative Report ---
Operative Report Operative Report: Operative Report: Operative Report: September 03, 2019 Preoperative diagnosis: Left breast cancer of the lower inner quadrant with positive margin Postoperative diagnosis: Same Procedure: Left mastectomy inferior skin flap revision Surgeon: Jackelin Haney MD Gray Tender: Megan Herbert MD Anesthesia: General Findings: Excision of inferior skin flap at area of positive margin Complications: None EBL: Less than 50 ml Disposition: plastic surgery proceeded with closure Indications for operative procedure: This is a 49 year old lady with newly diagnosed multicentric left breast cancer of the lower inner quadrant, IDCA Stage II and recently underwent a prophylactic right total mastectomy and left modified radical mastectomy followed by immediate bilateral tissue expanders by plastic surgery, [id number] ER positive with positive lower inner quadrant margin. Recommendations were to proceed with mastectomy inferior skin flap revision with excision. Area of positive margin was marked at the time of surgery with 3-0 silk sutures given concern for positive margin given close proximity of tumor to skin and patient with small breast size and attempted to leave adequate skin for primary closure. Patient understood the possibility of having to go back to surgery for inferior mastectomy skin flap revision in conjuction with plastic surgery, she understood if skin could not be approximated she would need a rotational flap for closure given small breast size. She wished to proceed with the above procedure. Procedure in detail: Patient was then taken to the operating room. Gen. anesthesia was administered. Bilateral breast mounds/chest were prepped and draped in the normal sterile operative fashion. Timeout was performed. Skin incision using a 15 blade knife was made through the prior left mastectomy skin flap. The mesh that was placed with tissue expanders was dissected from the skin posteriorly without incident. 3 sutures that were placed laterally, in the middle and medially were identified and aided in the area of excision. A marking pen was used to shashank the area of excision, marking made outside the area of sutures placed from prior surgery. The inferior mastectomy skin flap revision with excision of inferior skin flap was taken down to the inframammary fold using a 15 blade knife and the inferior skin flap revision was then performed. Hemostasis was obtained with the Bovie cautery. Plastic surgery then proceeded with mobilization superiorly and inferiorly. The skin appeared wound be able to be closed primarily after saline was removed from the tissue film processing supervisor and film processing supervisor was deflated. Inferior mastectomy skin flap was then sent to pathology after properly marked. The patient tolerated surgery very well and plastic surgery then proceeded with skin closure. The patient underwent multiple tissue film processing supervisor expansions in preparation for surgery to aide in primary skin closure.
[2019-09-03] MEDS ORDERED: HYDROmorphone 1 MG/1 ML INJ ONE (18:35)
[2019-09-03] MEDS ORDERED: ROCURONIUM 50 MG/5 ML INJ IV ONE (18:35)
[2019-09-03] MEDS ORDERED: NEOSTIGMINE 10MG/10 ML INJ MDV ONE (18:35)
[2019-09-03] MEDS ORDERED: ONDANSETRON 4 MG/2 ML INJ ONE (18:35)
[2019-09-03] MEDS ORDERED: GLYCOPYRROLATE 0.4 MG/2 ML INJ ONE (18:35)
[2019-09-03] MEDS ORDERED: LACTATED RINGERS 1,000 ML ONE (18:47)
[2019-09-03] MEDS: HYDROmorphone 1 MG/1 ML INJ IV PRN ×2 (18:47→19:00)
[2019-09-03] MEDS ORDERED: ONDANSETRON 4 MG/2 ML INJ IV ONE (19:56)
[2019-09-03 20:43] VITALS: BP 158/93
--- NOTE | 2019-09-04 00:01 | Operative Report ---
PREOPERATIVE DIAGNOSIS: Left breast cancer with positive margin of the mastectomy skin flap. POSTOPERATIVE DIAGNOSIS: Left breast cancer with positive margin of the mastectomy skin flap. PROCEDURES: 1. Left breast reconstruction using other technique, local tissue rearrangement, 20 x 20 cm in size. 2. Application of JESSY negative pressure wound VAC device to left breast for postoperative wound healing. SURGEON: Brant Feng MD SECURITY THREAT ANALYST: None. ANESTHESIA: General. OPERATIVE INDICATIONS: This is a 49-year-old female with a history of left-sided breast cancer, underwent bilateral mastectomies with tissue business information consultant reconstruction. Unfortunately, postoperatively, final pathology demonstrated a positive margin on the inferior mastectomy flap on the left breast. Dr. Haney, her breast surgeon, required that she go back to surgery for additional excision of the skin on both poles. Attempts were made while getting her surgery scheduled to expand her in the office in a couple of weeks to see if we could get enough skin to potentially avoid a flap. We are trying to attempt to avoid a flap at this juncture given the fact that she is almost guaranteed to need radiation therapy and we would like to save the flap from radiation and use the flap post-radiation. Risks and benefits of surgery discussed with the patient and she agreed. OPERATIVE DETAILS: With informed consent obtained, the patient was brought to the operating room and placed supine on the operative table. Preoperative antibiotics and general anesthesia were administered. The patient was prepped and draped in the usual sterile fashion. Timeout was called to verify the name of the patient, operation being performed and the site of the operation. I began by incising the previous mastectomy incision. We dissected down until we encountered the FlexHD biological mesh. I then bluntly dissected a plane between the mastectomy skin flap and the biologic mesh circumferentially to dissect and expose the entire mesh implant composite. Once that was done, Dr. Haney identified the location of the area that was marked for concern for positive margin. We then marked the additional excision that had to be done. We performed the excision which resulted in a substantial defect going down to about 1-2 cm above the inframammary fold. At this point, in order to try to get the defect closed, extensive undermining was done circumferentially all the way down on to the abdominal wall in order to rotate and advance the abdominal wall flap. We also had to undermine medially and then superiorly up to the collar bone. Total area was roughly 20 x 20 square cm of undermining and mobilization. I was then able to advance the abdominal soft tissue flap up onto the chest wall and we used progressive tension sutures to do that and pull it up on to the lower pole of the implant. We then copiously irrigated with triple antibiotic and Betadine and then we placed a 19-Armenian round Giacomo drain, achieved hemostasis, and then brought the superior mastectomy flap down and closed with 2-0 Vicryl, 3-0 Monocryl, deep dermal and then 3-0 Monocryl running subcuticular barbed suture. We were able to do this with minimal tension on the closure due to progressive tension sutures with significant undermining and advancement of the superior abdominal flap. The business information consultant prior to this had been completely deflated and all the fluid was removed in order to take as much pressure off the tissues as possible. We then placed a JESSY negative pressure wound VAC device over the incision to help with postoperative wound healing and minimize the chance of dehiscence The drain was dressed with a Biopatch and Tegaderm. She tolerated the procedure well, was awakened from general anesthesia and transferred to PACU in stable condition. ESTIMATED BLOOD LOSS: Less than 50 mL. COMPLICATIONS: None. SPECIMENS: Per Dr. Haney. JOB# [id number] RODGER/VEL MARTINI
== END 2019-09-03 20:20 | disposition home or self-care (01) ==
LOC: OR 12:33
PROVIDERS: ATTEND Surgery
DX: C50.212 Malignant neoplasm of upper-inner quadrant of left female breast (principal); C50.812 Malignant neoplasm of overlapping sites of left female breast; G43.909 Migraine, unspecified, not intractable, without status migrainosus; I10 Essential (primary) hypertension; K21.9 Gastro-esophageal reflux disease without esophagitis; M79.7 Fibromyalgia; M19.90 Unspecified osteoarthritis, unspecified site; F41.9 Anxiety disorder, unspecified; Z72.89 Other problems related to lifestyle; Z98.890 Other specified postprocedural states; Z79.899 Other long term (current) drug therapy; Z88.5 Allergy status to narcotic agent; Z90.13 Acquired absence of bilateral breasts and nipples; Z98.51 Tubal ligation status; Z98.891 History of uterine scar from previous surgery; Z87.440 Personal history of urinary (tract) infections; Z80.8 Family history of malignant neoplasm of other organs or systems; Z86.2 Personal history of diseases of the blood and blood-forming organs and certain disorders involving the immune mechanism; Z88.8 Allergy status to other drugs, medicaments and biological substances
CPT/HCPCS: 19380; 36415; 81025; 85007; 85025; 88307; J0690; J1170; J1580; J2250; J2405; J2704; J2710; J3010; J7030; J7120; 88305; Q9968

== ENCOUNTER 2019-09-12 06:03 | Day surgery (SDC) | payer MEDICARE, OTHER ==
[~2019-09-12 06:03] MED LIST changes: -METHYLENE BLUE 50 MG/10 ML AMP ONE; -SODIUM CHLORIDE P/F VIAL 10 ML 0 ML ONE
[2019-09-12] MEDS ORDERED: BACITRACIN 50,000 UNIT VIAL ONE (06:35)
[2019-09-12] MEDS ORDERED: GENTAMICIN 40 MG/ML VIAL 2 ML ONE (06:35)
[2019-09-12] MEDS ORDERED: ceFAZolin 1 GM VIAL ONE (06:36)
[2019-09-12] MEDS ORDERED: SODIUM CHLORIDE P/F VIAL 10 ML 0 ML ONE (06:36)
[2019-09-12] MEDS ORDERED: BUPIVACAINE/PF (0.25%) 2.5 MG/ML 30 ML VIAL INFILTRATI ONE ×2 (06:37→08:27)
[2019-09-12] MEDS ORDERED: LACTATED RINGERS 1,000 ML ONE ×2 (06:37→09:16)
[2019-09-12] MEDS ORDERED: HEPARIN 10,000 UNITS/10 ML VIAL ONE (06:37)
[2019-09-12] MEDS ORDERED: SODIUM CHLORIDE 0.9% 100 ML ONE (06:37)
[2019-09-12] MEDS ORDERED: BACTERIOSTATIC SODIUM CHLORIDE 0.9% 30 ML VIAL INFILTRATI ONE (06:37)
[2019-09-12] MEDS ORDERED: LIDOCAINE (1%) 10 MG/1 ML VIAL 20 ML MDV ONE (06:38)
[2019-09-12] MEDS ORDERED: SODIUM CHLORIDE P/F VIAL 10 ML 10 ML ONE (06:38)
--- NOTE | 2019-09-12 07:21 | Anesthesia Day of Surgery ---
Anesthesia Day of Surgery - Day of Surgery Patient Examined: Yes Patient H&P Reviewed: Yes Patient is NPO: Yes
--- NOTE | 2019-09-12 07:22 | Anesthesia Consultation ---
Anesthesia Consult and Med Hx Date of service: 09/12/19 - Airway Anesthetic Teeth Evaluation: Chipped ROM Head & Neck: Adequate Mental/Hyoid Distance: Adequate Mallampati Class: Class II Intubation Access Assessment: Probably Good - Pre-Operative Health Status ASA Pre-Surgery Classification: ASA2 Proposed Anesthetic Plan: General - Pulmonary Hx Smoking: No Hx Asthma: No Hx Respiratory Symptoms: No COPD: No Hx Pneumonia: No - Cardiovascular System Hx Hypertension: Yes (2012- JAEL) Hx Heart Attack/AMI: No - Central Nervous System CVA: No Hx Psychiatric Problems: Yes (Anxiety) - Gastrointestinal Hx Gastroesophageal Reflux Disease: Yes (controlled with omeprazole) - Endocrine Hx Renal Disease: No Hx End Stage Renal Disease: No Hx Liver Disease: No Hx Insulin Dependent Diabetes: No Hx Non-Insulin Dependent Diabetes: No Hx Thyroid Disease: No - Hematic Hx Anemia: Yes - Other Systems Hx Alcohol Use: Yes Hx Substance Use: No Hx Cancer: Yes
[2019-09-12] MEDS ORDERED: ONDANSETRON 4 MG/2 ML INJ IV PRN (07:23)
[2019-09-12] MEDS ORDERED: ACETAMINOPHEN 500 MG TAB PO NR (07:24)
[2019-09-12] MEDS ORDERED: ROCURONIUM 50 MG/5 ML INJ IV ONE (07:32)
[2019-09-12] MEDS ORDERED: LIDOCAINE MPF (2%) 20 MG/1 ML VIAL 5 ML ONE (07:32)
[2019-09-12] MEDS ORDERED: PROPOFOL 200 MG/20 ML VIAL IV ONE (07:33)
[2019-09-12] MEDS ORDERED: fentaNYL 250 MCG/5 ML INJ ONE (07:33)
[2019-09-12] MEDS ORDERED: KETOROLAC 30 MG/1 ML INJ ONE (08:00)
[2019-09-12] MEDS ORDERED: MIDAZOLAM 2 MG/2 ML INJ IV NR (08:00)
[2019-09-12] MEDS ORDERED: LACTATED RINGERS 1,000 ML IV SCH (08:00)
[2019-09-12] MEDS ORDERED: ONDANSETRON 4 MG/2 ML INJ ONE (08:23)
[2019-09-12] MEDS ORDERED: dexAMETHasone 20 MG/5 ML VIAL ONE (08:23)
[2019-09-12] MEDS ORDERED: METOCLOPRAMIDE 10 MG/2 ML INJ ONE (08:23)
[2019-09-12] MEDS ORDERED: LIDOCAINE (1%) 10 MG/1 ML VIAL 20 ML MDV INFILTRATI ONE (08:27)
[2019-09-12] MEDS ORDERED: HEPARIN 10,000 UNITS/10 ML VIAL IV ONE ×2 (08:27→08:53)
[2019-09-12] MEDS ORDERED: KETAMINE/STERILE WATER 50 MG/ML SYRINGE ONE (08:33)
--- NOTE | 2019-09-12 08:38 | Operative Report ---
Operative Report Operative Report: Operative Report: September 12, 2019 Preoperative diagnosis: Left breast cancer of the lower inner quadrant with positive inferior flap margin Postoperative diagnosis: Same Procedure: Left mastectomy inferior skin flap revision Surgeon: Jackelin Haney MD Anesthesia: General Findings: Excision of inferior skin flap at area of positive margin with 3 cm margins, excision of skin to upper abdomen Complications: None EBL: Minimal Disposition: plastic surgery proceeded with closure Indications for operative procedure: This is a 49 year old lady with newly diagnosed multicentric left breast cancer of the lower inner quadrant, IDCA Stage II [id number] ER positive and recently underwent a prophylactic right total mastectomy and left modified radical mastectomy followed by immediate bilateral tissue expanders by plastic surgery, with positive lower inner quadrant margin. Recommendations were to proceed with mastectomy inferior skin flap revision with excision, initial pathology of left breast with too numerous to count left breast cancer masses-not seen on any imaging prior to surgery. Area of positive margin was marked at the time of surgery with 3-0 silk sutures given concern for positive margin given close proximity of tumor to skin and patient with small breast size and attempted to leave adequate skin for primary closure. She was taken to surgery on 09/03/2019 for mastectomy inferior flap revision with a small focus of adenomcarcinoma on final pathology, excision was taken to the inframammary fold. Recommendations are now to proceed with excision of the inferior flap with 3 cm margins which is way beyond the inframammary fold extending now into the upper abdomen. Port placement recommended same time of surgery given high risk on Mammoprint for breast cancer recurrence by medical oncology and patient will need adjuvant chemotherapy. Plastic surgery will then proceed with probable latissmus dorsi flap if unable to primary close after removal of tissue cyber legal advisor. She wished to proceed with the above procedure. Procedure in detail: Patient was then taken to the operating room. Gen. anesthesia was administered. Bilateral breast mounds/chest were prepped and draped in the normal sterile operative fashion. Timeout was performed. Dr. Lazcano placed right port. A skin incision using a 15 blade knife was made through the prior left mastectomy skin flap. The mesh that was placed with tissue expanders was dissected from the skin posteriorly without incident. Tissue cyber legal advisor was present and left intact. A marking pen was used to shashank the area of excision with 3 cm from the inferior mastectomy flap, giving 3 cm margins. The inferior mastectomy skin flap revision with excision of inferior skin flap was excised using a 15 blade knife and aide of bovie cautery with dissection into the upper abdomen given prior inferior mastectomy skin flap r evision was taken to the inframammary fold. Specimen was marked and then sent to pathology personally by myself. Hemostasis was obtained with the Bovie cautery. Plastic surgery then proceeded with attempt to primary closure and if not feasible, with flap closure. The patient tolerated surgery very well.
[2019-09-12] MEDS ORDERED: PHENYLEPHRINE/NS 1,000 MCG/10 ML SYRINGE (OR USE) IV ONE (08:54)
--- NOTE | 2019-09-12 10:00 | Post Operative Note ---
Date of procedure: 09/12/19 Pre-op diagnosis: left breast cancer Post-op diagnosis: same Findings: Good blood return from port and flushes easily Procedure: right subclavian port a cath with mindray ultrasound guidance Anesthesia: LUIS FELIPEA, local Surgeon: KAYLYNN BRIAN Estimated blood loss: minimal Pathology: none Condition: stable Disposition: other (Patient remained in OR in stable condition for next procedure with Dr. Haney. CXR to be performed in PACU)
[2019-09-12] MEDS ORDERED: HYDROmorphone 1 MG/1 ML INJ ONE (10:25)
[2019-09-12] MEDS ORDERED: NEOSTIGMINE 10MG/10 ML INJ MDV ONE (10:59)
[2019-09-12] MEDS ORDERED: GLYCOPYRROLATE 0.4 MG/2 ML INJ ONE (10:59)
--- NOTE | 2019-09-12 11:18 | Short Stay Summary ---
Short Stay Documentation Date of service: 09/12/19 Narrative H&P: surgery for positive margin breast cancer - History Principal diagnosis: left breast cancer Past Medical History: No medical history Past Surgical History: mastectomy, Other - Allergies and Medications Current Medications: Allergies codeine Allergy (Verified 09/09/19 17:34) Rash amlodipine Adverse Reaction (Verified 09/09/19 17:34) Palpitation lisinopril Adverse Reaction (Verified 09/09/19 17:34) Facial Twitching NSAIDS (Non-Steroidal Anti-Inflamma Adverse Reaction (Verified 09/09/19 17:34) Contraindicated Severe GERD prednisone Adverse Reaction (Verified 09/09/19 17:34) Contraindicated Severe GERD Home Medications Medication Instructions Recorded Confirmed Last Taken Type Cholecalciferol (Vitamin D3) 2,000 unit PO QDAY 07/28/19 09/09/19 09/11/19 History [Vitamin D3 2,000 UNIT CAP] Cyanocobalamin (Vitamin B-12) 1,000 mcg PO DAILY 07/28/19 09/09/19 09/11/19 His tory [Vitamin B-12] Docusate Sodium [Colace] 100 mg PO BID 07/28/19 09/09/19 09/11/19 History Ferrous Sulfate [Feosol] 325 mg PO BID 07/28/19 09/09/19 09/11/19 History Loratadine (Nf) [Claritin] 10 mg PO DAILY PRN 07/28/19 09/09/19 09/11/19 History Multivitamin [Children's Chewable 1 each PO DAILY 07/28/19 09/09/19 09/11/19 History Vitamin] Pantoprazole [Protonix] 40 mg PO BID 07/28/19 09/12/19 09/12/19 04:50 History Sulfamethoxazole/Trimethoprim 1 each PO BID 07/28/19 09/09/19 09/11/19 History [Bactrim DS TAB] Telmisartan 40 mg PO DAILY 07/28/19 09/09/19 09/11/19 History Active Medications Acetaminophen (Tylenol) 1,000 mg PO ONCE NR Stop: 09/12/19 13:00 Last Admin: 09/12/19 07:35 Dose: 1,000 mg Documented by: Hydromorphone HCl (Dilaudid) 0.5 mg IV Q10MIN PRN PRN Reason: Pain , Severe (7-10) Stop: 09/12/19 22:00 Cefazolin Sodium (Ancef/Sterile Water 2 Gm/20 Ml) 2 gm in 20 mls @ 80 mls/hr IV PREOP NR; Protocol Stop: 09/12/19 23:59 Lactated Ringer's (Lactated Ringers) 1,000 mls @ 125 mls/hr IV DIRECT NEGRO Last Admin: 09/12/19 06:50 Dose: 125 mls/hr Documented by: Midazolam HCl (Versed) 2 mg IV PREOP NR Stop: 09/12/19 23:59 Last Admin: 09/12/19 07:35 Dose: 2 mg Documented by: Ondansetron HCl (Zofran) 4 mg IV ONCE PRN PRN Reason: Nausea And Vomiting Stop: 09/12/19 13:00 - Physical exam General appearance: no acute distress Breasts: other (left mastectomy, drain in place) Heart: Regular rate - Brief post op/procedure progress note Date of procedure: 09/12/19 Pre-op diagnosis: left breast cancer Post-op diagnosis: same Procedure: left adjacent tissue transfer of the chest for closure of defect. Anesthesia: GETA Findings: large defect of the chest, 20 x 20 cm Surgeon: LUAN CABELLO Estimated blood loss: minimal Specimen disposition: to lab - Hospital course Hospital course: recovered in PACU and then home - Disposition Condition at discharge: Good Disposition: DC-01 TO HOME OR SELFCARE Short Stay Discharge Plan Activity: other (no lifting, no lifting left arm above shoulder, keep at side as much as possible. No laying on stomach and chest. Drain teaching. May shower tomorrow. ) Weight Bearing Status: Full Weight Bearing Diet: regular Wound: open to air, other (wear breast binder daily) Follow up with: PHYLICIA KAYE DO [Primary Care Provider] - 7 Days LUAN CABELLO MD [Staff Physician] - 7 Days
[2019-09-12] MEDS: HYDROmorphone 1 MG/1 ML INJ IV PRN ×3 (11:35→12:10)
[2019-09-12] MEDS ORDERED: SODIUM CHLORIDE 0.9% IRR 1,500 ML BOTTLE IR ONE (11:45)
--- NOTE | 2019-09-12 11:45 | Operative Report ---
PREOPERATIVE DIAGNOSIS: Left breast cancer. POSTOPERATIVE DIAGNOSIS: Left breast cancer. FINDINGS: Good blood return from the port flushed easily. PROCEDURE: Right subclavian Port-A-Cath with Mindray ultrasound guidance. ANESTHESIA: General endotracheal anesthesia, local. SURGEON: Pretty Lazcano DO ESTIMATED BLOOD LOSS: Minimal. PATHOLOGY: None. CONDITION ON DISPOSITION: The patient is stable with the patient remaining in OR for next procedure with Dr. Haney. A chest x-ray will be performed in PACU. HISTORY OF PRESENT ILLNESS AND INDICATION: The patient is a 49-year-old female who was diagnosed with left-sided breast cancer. She underwent bilateral mastectomy with reconstruction on the right hand side. The patient was found to have positive margins. The skin margins on the left and therefore will need to undergo reexcision and flap reconstruction per Dr. Haney and Dr. Feng. The patient Oncotype was performed, which was high. With all these findings, she is a candidate for chemotherapy. I discussed the indications, risks, benefits and alternatives to port placement with the patient and questions were answered. Consent was obtained. PROCEDURE IN DETAIL: The patient was identified in the preoperative area and taken back to the operating room and placed on the operating table in supine position. After anesthesia was induced, a Garcia catheter was sterilely placed by the circulating nurse and bilateral arms were tucked with all bony prominences padded appropriately. The bilateral upper chest and neck were prepped and draped in the usual sterile fashion. Timeout was performed. The right subclavian vein was identified using migraine ultrasound guidance. The patient was placed in Trendelenburg and local anesthetic was infiltrated into the skin at the intended incision site. The right subclavian vein was accessed on the first stick with return of dark red nonpulsatile blood. The wire was threaded without resistance and positioning confirmed using fluoroscopy. Local anesthetic was infiltrated in the right upper chest at the intended incision site and a 4-cm incision was made using a 15 blade. Dissection was carried down through skin and subcutaneous tissue using Bovie electrocautery until the prepectoral fascia was identified. A subcutaneous pocket was then created for the port using electrocautery and blunt dissection with a gloved finger. Once the pocket was created, it was checked for hemostasis, which was carefully ensured. The catheter was then tunneled from the pocket to the wire and the tract dilated over the wire under direct fluoroscopic guidance. The catheter was then threaded through the breakaway catheter sheath, which in the usual fashion until it was seen to lay flush underneath the skin. The course of the catheter did not demonstrate any kinks or loops. The catheter tip was pulled back until it was seen at the cavoatrial junction. This was approximately 25 cm where the port was then cut and assembled in the usual fashion. The port was tested and returned good blood flow. It was flushed with heparinized saline. The port was then sutured into place and at the prepectoral fascia and once again tested with heparinized saline and did return blood and flushed easily. It was then instilled with 3000 units of heparin. The pocket was then once again irrigated with saline and hemostasis ensured. The deep dermal layer was closed with 3-0 Vicryl interrupted sutures and the skin was closed with 4-0 Monocryl subcuticular running stitch and skin glue. The puncture site was also closed with a 4-0 Monocryl subcuticular stitch and skin glue. At the end of the case, all sponge, instrument, sharp counts were correct x 2. The patient remained stable throughout the procedure and remained in the operating room for her next procedure with Dr. Haney and then subsequent procedure with Dr. Feng. Chest x-ray was ordered to be performed in PACU at the conclusion of her surgery. JOB# [id number] NIKKI/VEL MARTINI
--- NOTE | 2019-09-12 12:06 | XRay Report ---
CHEST 1 VIEW INDICATION / CLINICAL INFORMATION: s/p port placement. COMPARISON: None available. FINDINGS: SUPPORT DEVICES: None. HEART / MEDIASTINUM: No significant abnormality. LUNGS / PLEURA: No significant pulmonary or pleural abnormality.. No pneumothorax. ADDITIONAL FINDINGS: No significant additional findings. IMPRESSION: 1. No acute findings. CHEST 1 VIEW INDICATION / CLINICAL INFORMATION: s/p port placement. COMPARISON: None available. FINDINGS: SUPPORT DEVICES: Tip of the Port-A-Cath catheter projects the level the right atrium. Surgical drain projects over the left chest. HEART / MEDIASTINUM: No significant abnormality. LUNGS / PLEURA: No significant pulmonary or pleural abnormality.. No pneumothorax. ADDITIONAL FINDINGS: No significant additional findings. IMPRESSION: 1. Tip of the Port-A-Cath catheter projects the level of the right atrium. No pneumothorax is seen. Signer Name: Farshad Krause MD Signed: 09/12/2019 12:01 PM Workstation Name: [id number]
--- NOTE | 2019-09-12 12:18 | Fluoroscopy Report ---
FLUOROSCOPY CENTRAL VENOUS DEVICE PLACEMENT HISTORY: Left breast cancer, [id number]-u-[id number] insertion FINDINGS: 0.2 minutes of fluoroscopy time was provided by radiology during [id number]-Vcnv insertion. O ne fluoroscopic image is presented demonstrating the distal tip of the Tgyqql-c-Ibxe in the mid to lo wer SVC. No pneumothorax is appreciated. The right lung is well-aerated. Signer Name: Adonay Monteiro Jr, MD Signed: 09/12/2019 12:14 PM Workstation Name: [id number]
--- NOTE | 2019-09-12 12:34 | Operative Report ---
PREOPERATIVE DIAGNOSIS: Left-sided breast cancer with positive margin. POSTOPERATIVE DIAGNOSIS: Left-sided breast cancer with positive margin. PROCEDURE: 1. Left breast reconstruction with other technique, adjacent tissue transfer and complex closure 400 square cm. 2. Removal of left-sided tissue adjunct professor without replacement. SURGEON: Dr. Brant Feng. IT HELP DESK ASSOCIATE: None. ANESTHESIA: General. OPERATIVE INDICATIONS: A 49-year-old female with a history of left-sided breast cancer who had undergone bilateral mastectomies and tissue adjunct professor reconstruction. Unfortunately, she had a positive margin on the left side and had to be taken back to surgery for reexcision. At that time, we were able to primarily close her by deflating her tissue adjunct professor. Unfortunately her margin came back positive again and she had to be taken back again for additional resection of the lower pole of the breast. At this time, we thought it was likely that she would be a latissimus flap in order to close the defect and so she was consented for a possible latissimus flap. She was marked in the preoperative holding area for that and was taken back to the operating room. OPERATIVE DETAILS: After informed consent obtained, the patient was brought to the operating room and placed supine on the operating table. Preoperative antibiotics and general anesthesia were administered. The patient was prepped and draped in usual sterile fashion and a timeout was called to verify name of the patient and the operation being performed, side and site of the operation. Dr. Haney did her portion first. She went ahead and resected the additional tissue that she needed and then asked me to come in to reassess. The patient also had a Port-A-Cath placed that morning prior to Dr. Haney doing the resection that was also completed. I assessed the defect. It was quite large and was about 20 cm in length x about 15 cm in vertical dimension. By trying to push the tissues together, they did seem to start to come close together, but would not close without tension. I therefore removed the tissue adjunct professor from the pocket and then reassessed. There still appeared to be a little bit of tension, but we felt hopeful that potentially we could get this closed primarily, so I performed adjacent tissue transfer. There was extensive undermining all the way around the entire breast pocket. We then undermined on to the abdominal wall jail down the abdominal wall. We elevated the tissue and then we were able to advance the entire di-abdominal wall flap up onto the chest wall. I used 2-0 Vicryl progressive tension sutures in order to advance the abdominal flap under the chest wall, and once that was done, we brought the lower flap jail up the breast to the level of approximately where the nipple areolar complex would have bene. I was then able to pull down the upper flap using progressive tension sutures down to beneath the inferior flap and by doing that, we were able to bring the two ends together without any tension on the suture line itself. I achieved hemostasis irrigating copiously and placed a 19-Lao round Giacomo drain. We then closed with 2-0 Vicryl on the deeper layers, 3-0 Monocryl deep dermal and then a 2-0 Monocryl V-Loc barbed suture in a subcuticular fashion on the skin. We applied Dermabond over the incision. We dressed the drains with Biopatches and Tegaderm. The patient tolerated the procedure well. She was awakened from general anesthesia, transferred to PACU in stable condition. ESTIMATED BLOOD LOSS: Less than 50 mL. COMPLICATIONS: None. SPECIMENS: None. JOB# [id number] RODGER/VEL
[2019-09-12 12:43] VITALS: BP 140/91
--- NOTE | 2019-09-13 06:55 | Post Anesthesia Evaluation ---
- Post Anesthesia Evaluation Patient Participated: Yes Airway Patent: Yes Stable Respiratory Function: Yes Nausea/Vomiting: No Temp > 96.8F: Yes Pain Manageable: Yes Adequeate Hydration: Yes Anesthesia Complications: No Block Receding Appropriately: Not Applicable Patient on Ventilator: No
== END 2019-09-12 13:50 | disposition home or self-care (01) ==
LOC: OR 06:03
PROVIDERS: ATTEND Surgery
DX: C50.312 Malignant neoplasm of lower-inner quadrant of left female breast (principal); G43.909 Migraine, unspecified, not intractable, without status migrainosus; I10 Essential (primary) hypertension; K21.9 Gastro-esophageal reflux disease without esophagitis; M19.90 Unspecified osteoarthritis, unspecified site; M79.7 Fibromyalgia; F41.9 Anxiety disorder, unspecified; Z72.89 Other problems related to lifestyle; Z98.890 Other specified postprocedural states; Z88.5 Allergy status to narcotic agent; Z79.899 Other long term (current) drug therapy; Z90.13 Acquired absence of bilateral breasts and nipples; Z98.51 Tubal ligation status; Z98.891 History of uterine scar from previous surgery; Z87.440 Personal history of urinary (tract) infections; Z80.8 Family history of malignant neoplasm of other organs or systems; Z88.8 Allergy status to other drugs, medicaments and biological substances
CPT/HCPCS: 11971; 14301; 14302; 19301; 19380; 36561; 71045; 77001; 81025; 88307; C1788; J0690; J1100; J1170; J1644; J1885; J2250; J2370; J2405; J2704; J2710; J2765; J3010; J7120; 88309; J1580

== ENCOUNTER 2020-06-30 10:59 | Observation (INO) | payer MEDICARE, OTHER ==
[2020-06-28 12:01] LABS: Hematocrit 38.3 % (30.3-42.9); Hemoglobin 12.2 gm/dl (10.1-14.3); Mean Corpuscular HGB Conc 32 % (30-34); Mean Corpuscular Volume 80 fl (79-97); Platelet Count 301 K/mm3 (140-440); Red Cell Distribution Width 14.6 % (13.2-15.2)
[2020-06-28 12:19] LABS: BUN/Creatinine Ratio 15; Blood Urea Nitrogen 12 mg/dL (7-17); Calcium 10.4 mg/dL (8.4-10.2); Hemolysis Index 1
--- NOTE | 2020-06-28 12:31 | Anesthesia Consultation ---
Anesthesia Consult and Med Hx Date of service: 06/30/20 - Airway Anesthetic Teeth Evaluation: Poor (cracked top right incisor, broken upper and lower molars on the right) ROM Head & Neck: Adequate Mental/Hyoid Distance: Adequate Mallampati Class: Class II Intubation Access Assessment: Probably Good (previous easy intubation with Mil2) - Pulmonary Exam CTA: Yes - Cardiac Exam Cardiac Exam: RRR - Pre-Operative Health Status ASA Pre-Surgery Classification: ASA2 Proposed Anesthetic Plan: General - Pulmonary Hx Smoking: No Hx Respiratory Symptoms: No - Cardiovascular System Hx Hypertension: Yes Hx Heart Attack/AMI: No Hx Percutaneous Transluminal Coronary Angioplasty (PTCA): No Hx Cardia Arrhythmia: No - Central Nervous System CVA: No Hx Psychiatric Problems: Yes (Anxiety) - Gastrointestinal Hx Gastroesophageal Reflux Disease: Yes (controlled with omeprazole) - Endocrine Hx Renal Disease: No Hx Liver Disease: No Hx Insulin Dependent Diabetes: No Hx Non-Insulin Dependent Diabetes: No Hx Thyroid Disease: No - Hematic Hx Anemia: Yes (no prior transfusions) - Other Systems Hx Cancer: Yes (hx breast ca s/p mastectomy) Hx Obesity: No - Additional Comments Anesthesia Medical History Comments: PMH fibromyalgia. No hx anesthetic complications.
--- NOTE | 2020-06-29 17:12 | History and Physical Report ---
History of Present Illness Date of examination: 06/29/20 Date of admission: 06/30/2020 Chief complaint: fibroids and breast carcinoma History of present illness: 49y/o with a personal history of breast carcinoma. The patient has elected for removal of ovaries secondary to carcinoma risk. She has symptomatic uterine fibroids with a leiomyoma measuring 3.1cm. She has elected to undergo a robotic hysterectomy and BSO. She is aware of the risks involved. 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 Social history: - Obstetrical History : 6 Para: 5 Hx # Term Pregnancies: 5 Number of Pregnancies: 0 Spontaneous Abortions: 1 Induced : 0 Number of Living Children: 5 Medications and Allergies Allergies Allergy/AdvReac Type Severity Reaction Status Date / Time codeine Allergy Rash Verified 06/28/20 17:21 amlodipine AdvReac Palpitation Verified 06/28/20 17:21 lisinopril AdvReac Facial Verified 06/28/20 17:21 Twitching NSAIDS (Non-Steroidal AdvReac Contraindicated Verified 06/28/20 17:21 Anti-Inflamma Severe GERD prednisone AdvReac Contraindicated Verified 06/28/20 17:21 Severe GERD Home Medications Medication Instructions Recorded Confirmed Last Taken Type Cholecalciferol (Vitamin D3) 2,000 unit PO QDAY 07/28/19 06/28/20 09/11/19 History [Vitamin D3 2,000 UNIT CAP] Docusate Sodium [Colace] 100 mg PO DAILY PRN 07/28/19 06/28/20 09/11/19 History Ferrous Sulfate [Feosol] 325 mg PO Q48H 07/28/19 06/28/20 09/11/19 History Pantoprazole [Protonix] 20 mg PO BID 07/28/19 06/28/20 09/12/19 04:50 History Calcium Carbonate [Calcium 600MG 600 mg PO BID 06/28/20 06/28/20 Unknown History TAB] Exemestane [Aromasin] 25 mg PO QDAY 06/28/20 06/28/20 Unknown History Metoprolol [Lopressor] 25 mg PO BID 06/28/20 06/28/20 Unknown History Valsartan [Diovan] 80 mg PO DAILY 06/28/20 06/28/20 Unknown History Active Meds: Active Medications Acetaminophen (Tylenol) 1,000 mg PO PREOP NEGRO Stop: 06/30/20 23:00 Fentanyl (Sublimaze) 100 mcg IV ONCE PRN PRN Reason: sedation for nerve block Gabapentin (Gabapentin) 600 mg PO PREOP NR Stop: 06/30/20 23:00 Lactated Ringer's (Lactated Ringers) 1,000 mls @ 100 mls/hr IV DIRECT NEGRO Stop: 06/30/20 23:59 Midazolam HCl (Versed) 2 mg IV PREOP NR Stop: 06/30/20 23:00 Review of Systems All systems: negative Genitourinary: pelvic pain - Vital Signs Vital signs: Vital Signs Temp Pulse Resp BP Pulse Ox 98.4 F 88 20 136/97 98 06/28/20 11:30 06/28/20 11:30 06/28/20 11:30 06/28/20 11:30 06/28/20 11:30 Temp Pulse Resp BP Pulse Ox 98.4 F 88 20 136/97 98 06/28/20 11:30 06/28/20 11:30 06/28/20 11:30 06/28/20 11:30 06/28/20 11:30 - Physical Exam Breasts: Positive: deferred Cardiovascular: Regular rate Lungs: Positive: Clear to auscultation Results Result Diagrams: 06/28/20 11:35 06/28/20 11:35 All other labs normal. Assessment and Plan - Patient Problems (1) Leiomyoma Status: Acute Plan to address problem: scheduled for a robotic hysterectomy and BSO (2) Breast carcinoma Status: Acute
[~2020-06-30 10:59] MED LIST changes: +ACETAMINOPHEN 500 MG TAB PO SCH; +GABAPENTIN 300 MG CAP PO NR; +LACTATED RINGERS 1,000 ML IV SCH; +MIDAZOLAM 2 MG/2 ML INJ IV NR; +fentaNYL 100 MCG/2 ML INJ IV PRN
[2020-06-30] MEDS ORDERED: HYDROmorphone 1 MG/1 ML INJ IV PRN (11:53)
[2020-06-30] MEDS ORDERED: ONDANSETRON 4 MG/2 ML INJ IV PRN ×2 (11:53→15:21)
--- NOTE | 2020-06-30 11:54 | Anesthesia Day of Surgery ---
Anesthesia Day of Surgery - Day of Surgery Patient Examined: Yes Patient H&P Reviewed: Yes Patient is NPO: Yes
[2020-06-30] MEDS ORDERED: BUPIVACAINE-EPINEPHRINE/PF 0.25%-1:200,000 (30 ML) VIAL INFILTRATI ONE (11:59)
[2020-06-30] MEDS ORDERED: dexAMETHasone 4 MG/ML VIAL ONE ×2 (11:59→12:00)
[2020-06-30] MEDS ORDERED: cloNIDine/PF 1,000 MCG/10 ML VIAL EP ONE (12:00)
[2020-06-30] MEDS ORDERED: HYDROmorphone 1 MG/1 ML INJ ONE (12:21)
[2020-06-30] MEDS ORDERED: propofoL 200 MG/20 ML VIAL IV ONE (12:21)
[2020-06-30] MEDS ORDERED: ROCURONIUM 50 MG/5 ML INJ IV ONE (12:22)
[2020-06-30] MEDS ORDERED: LIDOCAINE MPF (2%) 20 MG/1 ML VIAL 5 ML ONE (12:22)
[2020-06-30] MEDS ORDERED: BUPIVACAINE/PF (0.25%) 2.5 MG/ML 10 ML VIAL INFILTRATI ONE ×2 (12:48→13:41)
[2020-06-30] MEDS ORDERED: PHENYLEPHRINE/NS 1,000 MCG/10 ML SYRINGE (OR USE) IV ONE (13:20)
[2020-06-30] MEDS ORDERED: ONDANSETRON 4 MG/2 ML INJ ONE (13:21)
[2020-06-30] MEDS ORDERED: NEOMY 40 MG/POLYMYXIN B 200,000 UNITS/ML (GU) AMPULE IR ONE ×2 (13:41→14:30)
[2020-06-30] MEDS ORDERED: SODIUM CHLORIDE 0.9% IRR 1,500 ML BOTTLE IR ONE (13:42)
--- NOTE | 2020-06-30 13:57 | Operative Report ---
Operative Report Operative Report: Date of surgery: 06/30/2020 Preoperative diagnosis: Breast cancer Postoperative diagnosis: Same as above Procedure: Removal of right-sided port Surgeon: Osbaldo Lazcano DO Anesthesia: Geta, local Findings: Complete removal of right sided port without complication EBL: LESS than 5 cc Specimen: Port and catheter sent for ID only Complications: None Disposition: Stable in OR HPI and indication: Patient is a 49-year-old female with a history of breast cancer status post port placement for chemotherapy. The patient had completed her chemotherapy and was referred back to the surgery clinic for evaluation for port removal. The patient was undergoing a hysterectomy with Dr. Iyer and requested that the port be removed at the same time if possible. All risk, benefits, alternatives to port removal were discussed with the patient and questions answered. Consent obtained. The case was coordinated with Dr. Iyer and scheduled on the same day. Procedure in detail: The patient was identified in the preoperative area, take back to operating room and placed on operating table in supine position. After anesthesia was induced the right chest was prepped and draped in usual sterile fashion a timeout performed. Local anesthetic was infiltrated to skin at the intended incision site. An incision was made through the old right upper chest scar using a 15 blade and dissection then carried down through the subcutaneous tissue using hemostat. The catheter was identified and freed from the surrounding tissue using blunt dissection with a hemostat and then grasped between 2 hemostats. The catheter was transected using a scissor. The catheter was then removed completely and pressure held for greater than 5 minutes. There was no bleeding from the tract. The subcutaneous port was then dissected free from the capsule using a hemostat and removed from the incision. The catheter and subcutaneous port were passed off the table as a specimen for identification only. Wound was irrigated and hemostasis achieved using packing and pressure. Once hemostasis was ensured the wound was closed in a layered fashion. The deep dermal layer was closed with interrupted 3-0 Vicryl sutures. The skin was approximated using 4-0 Monocryl running subcuticular stitch and skin glue. At the end of the case, all sponge, instrument, sharp counts were correct x2. The patient remained in stable condition and was being prepared for her hysterectomy with Dr. Iyer. I placed a call to the patient's at the number listed on the chart and in [employer]. Initially I was able to get in touch with him however the line was disconnected. I tried calling him again multiple times and the phone went to voicemail, and voicemail box is full.
--- NOTE | 2020-06-30 15:18 | Operative Report ---
Operative Report Operative Report: Date: June 30, 2020 Preoperative diagnoses: Breast carcinoma; uterine fibroids Postoperative diagnoses: Same as above; pelvic adhesions Procedure: Robotic hysterectomy and bilateral salpingo-oophorectomy; lysis of adhesions Surgeon: Tina Iyer M.D. Power Switchboard Operator: Marah Solares Anesthesia: Gen. endotracheal anesthesia Estimated blood loss: 50 mL Pathology: Uterus, cervix, leiomyoma, bilateral tubes and ovaries Indication: 49-year-old -0-1-5 with a history of breast carcinoma. The patient desired to decrease her further risk of cancer development and has elected to undergo a robotic hysterectomy and bilateral salpingo-oophorectomy Procedure: The patient was taken to the operating room and given general endotracheal anesthesia without complication. She is prepped and draped in a normal sterile fashion. A bivalve speculum was placed in the patient's vagina and a single-too th tenaculum placed on the anterior lip of the cervix. The uterus was sounded with the uterine sound. A AppSense uterine manipulator was placed in the bivalve speculum was then removed. Attention was then turned to the patient's abdomen where a 12 millimeter supra umbilical skin incision was then made. A Veress needle was placed and peritoneal entry was verified water-filled syringe. Insufflation of the peritoneal cavity was performed with CO2 gas. The 12 mm trocar was then placed under direct visualization. An additional 8 mm trocar was placed on the patient's left and right lateral side just opposite of the supraumbilical trocar. An additional 5 mm right lateral trocar was then placed as the accessory port. The Giuliano Allen device was used to close the fascia of the 12 mm incision. The patient was then placed in steep Trendelenburg. The da Kenn robot was then engaged. A fenestrated forcep was placed in arm 2 and a vessel sealer was placed in arm 1. General survey of the abdomen and pelvis reveal significant pelvic adhesions. The uterus was densely adherent to the anterior abdominal wall. The left ovary was adherent to the left pelvic sidewall. The surgeon then transferred to the surgical console. The infundibulopelvic ligament was then isolated on the right. The vessel sealer was used to coagulate the ligament which was then transected. The tube and ovary were transected from the supply. The round ligament was then coagulated and transected also. The adhesions in the anterior cul-de-sac were lysed with the monopolar scissors. Extensive lysis of adhesions had to be performed in order to release the uterus from the anterior abdominal wall. The left ovary was excised from the left pelvic sidewall. The vesicouterine peritoneum was then entered from the patient's right side. The uterine vessels were then coagulated with the vessel sealer. The vessels were then transected . Attention was then turned to the patient's left side where the infundibulopelvic ligament and mesosalpinx were again isolated coagulated and transected. The vesical peritoneum was then entered from the left and joined in the midline. Peritoneum was reflected off of the lower uterine segment. Uterine vessels were then coagulated and then transected. The bladder was insufflated with water in order to delineate the bladder reflection on the lower uterine segment. The blood supply to the uterus was adequately contained, a posterior colpotomy was made. The V care ring was visualized. Posterior colpotomy was created with the monopolar scissors. The incision was continued circumferentially until anterior colpotomy was made. The cervix and uterus were amputated from the vaginal cuff. The uterus was then removed along with the tubes and ovaries bilaterally through the vagina and a warm laparotomy sponge was placed and maintain the pneumoperitoneum. The vaginal cuff was then closed in a running fashion with V lock suture. Irrigation of the pelvis was performed. Gelfoam with thrombin was applied to the incision. The skin was then reapproximated with 4-0 Monocryl. The tissue was sent to pathology which included the cervix, uterus, tubes and ovaries. The patient was then successfully extubated. She was then taken to the recovery room in stable condition. All sponge laps and needle counts were correct x2.
[2020-06-30] MEDS ORDERED: oxyCODONE /ACETAMINOPHEN 5-325MG TAB PO PRN (15:21)
[2020-06-30] MEDS ORDERED: MORPHINE 4 MG/1 ML INJ IV PRN (15:21)
[2020-06-30] MEDS ORDERED: MAGNESIUM HYDROXIDE (MOM) ORAL LIQD UDC PO PRN (15:21)
[2020-06-30] MEDS ORDERED: ACETAMINOPHEN 325 MG TAB PO PRN (15:21)
[2020-06-30] MEDS ORDERED: D5W/LACTATED RINGERS 1,000 ML IV SCH (16:00)
[2020-06-30] MEDS ORDERED: KETOROLAC 30 MG/1 ML INJ ONE (16:17)
[2020-06-30] MEDS: KETOROLAC 30 MG/1 ML INJ IV SCH ×2 (16:46→21:58)
[2020-06-30] MEDS ORDERED: D5W/LACTATED RINGERS 1,000 ML IV ONE (16:59)
--- NOTE | 2020-07-01 08:15 | Progress Note ---
Assessment and Plan A: POD #1 s/p robotic hysterectomy, breast cancer P: Routine advances Subjective - Subjective Date of service: 07/01/20 Principal diagnosis: s/p robotic hysterectomy, breast cancer Interval history: Pt doing well this morning. Voiding well. Patient reports: appetite normal, voiding normally, pain well controlled, ambulating normally Objective - Vital Signs Latest vital signs: Vital Signs Temp Pulse Resp BP BP Pulse Ox 07/01/20 00:36 98.5 F 89 20 135/91 99 06/30/20 19:59 97.8 F 63 20 141/94 100 06/30/20 17:16 14 06/30/20 17:15 97.5 F L 69 14 134/83 06/30/20 17:10 97.5 F L 69 14 134/83 06/30/20 17:00 75 13 146/81 06/30/20 16:46 13 06/30/20 16:45 97.3 F L 85 13 125/88 06/30/20 16:30 79 13 130/84 06/30/20 16:20 12 06/30/20 16:15 77 12 125/83 06/30/20 16:00 62 12 97/62 06/30/20 15:55 65 12 124/76 06/30/20 15:50 65 11 L 124/82 06/30/20 15:46 96.8 F L 71 11 L 137/86 06/30/20 13:10 97.8 F 67 16 109/64 06/30/20 12:40 77 13 100/53 06/30/20 12:35 75 9 L 101/54 06/30/20 12:30 76 10 L 99/57 06/30/20 12:25 81 11 L 107/63 06/30/20 12:24 16 06/30/20 12:20 75 10 L 108/64 100 06/30/20 12:16 71 11 L 117/70 06/30/20 12:10 67 10 L 138/83 06/30/20 12:05 70 16 130/87 06/30/20 12:00 78 9 L 153/97 06/30/20 11:55 81 12 145/95 06/30/20 11:40 97.6 F 72 18 143/83 99 06/30/20 11:30 97.6 F 72 18 143/83 99 Intake and Output 06/30/20 07/01/20 07/01/20 22:59 06:59 14:59 Intake Total 800 241 Output Total 775 850 Balance 25 -609 Intake: IV 800 Oral 241 Output: Urine 775 850 Indwelling Catheter 325 400 Void 450 Other: Total, Intake Amount 241 Total, Output Amount 325 450 # Voids Void 1 - Exam Breasts: Present: deferred Abdomen: Present: soft Extremities: Present: normal Incision: Present: intact
--- NOTE | 2020-07-01 08:17 | Short Stay Summary ---
Short Stay Documentation Date of service: 07/01/20 - History H&P: dictated Social history: - Allergies and Medications Current Medications: Allergies codeine Allergy (Verified 06/29/20 17:58) Rash amlodipine Adverse Reaction (Verified 06/29/20 17:58) Palpitation lisinopril Adverse Reaction (Verified 06/29/20 17:58) Facial Twitching NSAIDS (Non-Steroidal Anti-Inflamma Adverse Reaction (Verified 06/29/20 17:58) Contraindicated Severe GERD prednisone Adverse Reaction (Verified 06/29/20 17:58) Contraindicated Severe GERD Home Medications Medication Instructions Recorded Confirmed Last Taken Type Cholecalciferol (Vitamin D3) 2,000 unit PO QDAY 07/28/19 06/30/20 06/29/20 09:00 History [Vitamin D3 2,000 UNIT CAP] Docusate Sodium [Colace] 100 mg PO DAILY PRN 07/28/19 06/30/20 06/01/20 09:00 History Ferrous Sulfate [Feosol] 325 mg PO Q48H 07/28/19 06/30/20 06/29/20 09:00 History Pantoprazole [Protonix] 20 mg PO BID 07/28/19 06/30/20 06/30/20 09:20 History Calcium Carbonate [Calcium 600MG 600 mg PO BID 06/28/20 06/30/20 06/29/20 09:00 History TAB] Exemestane [Aromasin] 25 mg PO QDAY 06/28/20 06/30/20 06/29/20 09:00 History Metoprolol [Lopressor] 25 mg PO BID 06/28/20 06/30/20 06/30/20 09:20 History Valsartan [Diovan] 80 mg PO DAILY 06/28/20 06/30/20 06/29/20 09:00 History Ibuprofen [Motrin] 800 mg PO Q8HR PRN #60 tablet 06/30/20 Unknown Rx oxyCODONE /ACETAMINOPHEN [Percocet 1 tab PO Q6HR PRN #30 tablet 06/30/20 Unknown Rx 5/325] Active Medications Acetaminophen (Tylenol) 650 mg PO Q4H PRN PRN Reason: Pain, Mild (1-3) Dextrose/Lactated Ringer's (D5lr) 1,000 mls @ 125 mls/hr IV DIRECT NEGRO Ketorolac Tromethamine (Toradol) 30 mg IV Q6H NEGRO Stop: 07/05/20 15:59 Last Admin: 06/30/20 21:58 Dose: 30 mg Documented by: Magnesium Hydroxide (Milk Of Magnesia) 30 ml PO Q4H PRN PRN Reason: Constipation Morphine Sulfate (Morphine) 4 mg IV Q4H PRN PRN Reason: Pain , Severe (7-10) Ondansetron HCl (Zofran) 4 mg IV Q8H PRN PRN Reason: Nausea And Vomiting Last Admin: 06/30/20 22:02 Dose: 4 mg Documented by: Oxycodone/Acetaminophen (Percocet 5/325) 2 tab PO Q4H PRN PRN Reason: Pain, Moderate (4-6) Last Admin: 07/01/20 02:22 Dose: 2 tab Documented by: - Physical exam Breasts: deferred - Brief post op/procedure progress note Date of procedure: 07/01/20 Pre-op diagnosis: Uterine Fibroids, Breast Cancer Post-op diagnosis: same Procedure: Robotic Hysterectomy, Bilateral salpingo-oophorectomy Anesthesia: GETA Surgeon: HARRISON COPPOLA Estimated blood loss: minimal Pathology: list Specimen disposition: to lab (Uterus, cervix, leiomyoma, bilateral tubes and ovaries) Condition: stable - Hospital course Hospital course: Pt underwent robotic hysterectomy, BSO which she tolerated well. Her postoperative course was uncomplicated and she met discharge criteria on POD#1. She will follow up on POD#1. She will follow up in 4 wks. - Disposition Condition at discharge: Stable Disposition: - TO HOME OR SELFCARE - Discharge Diagnoses (1) S/P hysterectomy Status: Acute (2) Leiomyoma Status: Acute Short Stay Discharge Plan Activity: other (Nothing in vagina x 4 wks ) Weight Bearing Status: Full Weight Bearing Diet: regular Follow up with: PHYLICIA KAYE DO [Primary Care Provider] - 7 Days Forms: [facility] Discharge Summary Prescriptions: Ibuprofen [Motrin] 800 mg PO Q8HR PRN #60 tablet PRN Reason: Pain , Severe (7-10) oxyCODONE /ACETAMINOPHEN [Percocet 5/325] 1 tab PO Q6HR PRN #30 tablet PRN Reason: Pain
[2020-07-01 13:52] VITALS: BP 128/76
== END 2020-07-01 13:52 | disposition home or self-care (01) ==
LOC: OR 10:59 → OB 15:21
PROVIDERS: ADMIT Obstetrics & Gynecology; ATTEND Obstetrics & Gynecology
DX: D25.9 Leiomyoma of uterus, unspecified (principal); Z20.828 Contact with and (suspected) exposure to other viral communicable diseases; C50.911 Malignant neoplasm of unspecified site of right female breast; I10 Essential (primary) hypertension; Z92.21 Personal history of antineoplastic chemotherapy; Z79.899 Other long term (current) drug therapy; Z88.5 Allergy status to narcotic agent; Z88.6 Allergy status to analgesic agent; Z88.8 Allergy status to other drugs, medicaments and biological substances
CPT/HCPCS: 19330; 36415; 58571; 64450; 80048; 84703; 85027; 86850; 86900; 86901; 88300; 88307; 96361; 96374; 96375; 96376; G0378; J0690; J0735; J1100; J1170; J1885; J2250; J2370; J2405; J2704; J3010; J7120; J7121; S2900; U0003; 88302

== ENCOUNTER 2020-08-12 10:33 | Outpatient (CLI) | payer MEDICARE ==
[2020-08-12 11:30] LABS: Blood Urea Nitrogen 12 mg/dL (7-17)
--- NOTE | 2020-08-12 13:45 | Cat Scan Report ---
CT CHEST WITH CONTRAST INDICATION / CLINICAL INFORMATION: BREAST CA. TECHNIQUE: Axial CT images were obtained through the chest after 100 cc Omnipaque 300 IV contrast. Sagittal and coronal reformatted images. All CT scans at this location are performed using CT dose reduction for A DAVID by means of automated exposure control. COMPARISON: None available. FINDINGS: HEART: No significant abnormality. THORACIC AORTA: No significant abnormality. MEDIASTINUM and SYLVIA: No significant abnormality. LUNGS: No acute air space or interstitial disease. No suspicious pulmonary nodule. Mild radiation ch anges are suspected in the lingula. PLEURA: No significant pleural effusion. No pneumothorax. SKELETAL SYSTEM: No suspicious bony lesion is detected. ADDITIONAL FINDINGS: Bilateral mastectomy changes. 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 IMPRESSION: No evidence for recurrent or metastatic disease in the chest. CT ABDOMEN AND PELVIS WITH CONTRAST HISTORY: BREAST CA COMPARISON: None. TECHNIQUE: Axial CT images were obtained through the abdomen and pelvis after 100 cc of Omnipaque 300 intravenously. Sagittal and coronal reformatted images. All CT scans at this location are performed using CT dose reduction for ALARA by means of automated exposure control. FINDINGS: CT ABDOMEN: Liver: No significant abnormality. Few tiny cysts measuring less than 1 cm are noted in the left hepa tic lobe. Biliary: No significant abnormality. Spleen: No significant abnormality. Unenlarged. Pancreas: No significant abnormality. Adrenals: No significant abnormality. Kidneys: No significant abnormality. Lymphatics: No lymphadenopathy. Vasculature: No significant abnormality. Bowel/Peritoneum: No significant abnormality. No free air. No free fluid. CT PELVIS: : Hysterectomy changes are suspected. No adnexal abnormality. The bladder and distal ureters are un remarkable. Osseous Structures: No significant abnormality. No evidence for bony lesion or significant degenerati ve changes. Lumbar spine is unremarkable. Additional Findings: None IMPRESSION: No acute process or evidence for metastatic disease to the abdomen or pelvis. Tiny liver cysts. Hysterectomy. Signer Name: Adonay Monteiro Jr, MD Signed: 08/12/2020 1:41 PM Workstation Name: [id number]
== END 2020-08-12 10:34 | disposition home or self-care (01) ==
LOC: CT 10:33
PROVIDERS: ATTEND Surgery
DX: M54.5 Low back pain (principal); Q44.6 Cystic disease of liver; Z85.3 Personal history of malignant neoplasm of breast
CPT/HCPCS: 36415; 71260; 74177; 82565; 84520; Q9967